=== PATIENT | female | born 1935 | race Caucasian/White ===

== ENCOUNTER 2019-04-16 14:41 | Inpatient (IN) ==
[2019-04-16 18:06] LABS: ALLEN TEST NO; BE 4.7 mmoll (-3.0-3.0); BLOOD TYPE ARTERIAL; HCO3-(ACT) 28.4 mmoll (20.0-26.0); O2(CT) 17.2 mL/dL (15.0-23.0); PCO2(98.6) 42 mmHg (35-45); PO2(98.6) 65 mmHg (60-100); SAMPLE BLOOD; SAO2 97.2 % (95.0-100.0); THB 13.4 g/dL (11.5-17.4); pH(98.6) 7.45 (7.35-7.45)
[2019-04-16 18:08] LABS: MODALITY ROOM AIR
--- NOTE | 2019-04-16 18:13 | EKG Report ---
Test Performed on : 04/16/2019 5:50:03 PM Test Reason : CP Blood Pressure : / mmHG Vent. Rate : 061 BPM Atrial Rate : 061 BPM P-R Int : 174 ms QRS Dur : 086 ms QT Int : 436 ms P-R-T Axes : 075 038 069 degrees QTc Int : 438 ms Normal sinus rhythm. Possible Left atrial enlargement Borderline ECG When compared with ECG of 05-OCT-2011 07:19, No significant change was found Confirmed by Crow Valentine MD ([id number]) on 04/17/2019 12:02:29 PM
[2019-04-16 18:16] LABS: BASO# 0.05 X1000 (0.0-0.2); BASO% 0.7 % (0.0-0.8); EOS# 0.32 X1000 (0.0-0.7); EOS% 4.5 % (0.0-10.0); HEMATOCRIT 41.4 % (37.0-47.0); HEMOGLOBIN 13.8 g/dL (12.0-16.0); LYMPH# 1.98 X1000 (1.2-3.4); LYMPH% 27.5 % (20.5-51.1); MCH 31.2 PG (27-31); MCHC 33.3 g/dL (33-37); MCV 93.5 FL (81-99); MONO# 0.84 X1000 (0.11-0.59); MONO% 11.7 % (1.7-9.3); MPV 10.5 FL (7.4-10.4); NEUT% 55.6 % (42.2-75.2); PLT 198 X1000 (130-400); RBC 4.43 XMIL (4.2-5.4); RDW 13.7 % (11.5-14.5); WBC 7.19 X1000 (4.8-10.8)
--- NOTE | 2019-04-16 18:49 | Diag Imaging Result Doc PS360 ---
EXAM: CHEST-2 VIEWS - 04/16/2019 HISTORY: CP TECHNIQUE: Chest two views COMPARISON: 10/26/2016 FINDINGS: Heart size is normal. There is tortuosity of the thoracic aorta similar to prior. There are stable right basilar calcified granuloma from old granulomatous disease. There are possibly mild COPD changes. The lungs appear clear of acute changes. There is no pleural effusion or pneumothorax identified. There are exaggerated thoracic kyphosis and thoracic spondylosis noted. IMPRESSION: No evidence of acute disease. Electronically signed by Facundo Samano 04/16/2019 6:46 PM
[2019-04-16 18:51] LABS: AGAP 12; ALB/GLOB RATIO 1.6; ALBUMIN 3.8 g/dL (3.5-5.0); ALKALINE PHOSPHATASE 76 U/L (32-104); BUN 12 mg/dL (8-22); CALCIUM 9.5 mg/dL (8.8-10.2); CHLORIDE 106 mmol/L (98-107); CK PROFILE 54 U/L (24-173); COSMO 289; CREATININE 0.6 mg/dL (0.5-0.9); ESTIMATED GFR > 60; GLUCOSE 108 mg/dL (70-104); GOT 15 U/L (10-30); GPT 7 U/L (10-36); MAGNESIUM 2.1 mg/dL (1.5-2.7); POTASSIUM 3.7 mmol/L (3.5-5.1); SODIUM 145 mmol/L (136-145); TCO2 27 mmol/L (25-35); TOTAL BILIRUBIN 0.24 mg/dL (0.20-1.00); TOTAL PROTEIN 6.2 g/dL (6.3-8.3)
[2019-04-16 19:00] LABS: URINE SOURCE CLEAN CATCH
[2019-04-16 19:03] LABS: BILIRUBIN URINE NEGATIVE (NEGATIVE); BLOOD URINE NEGATIVE (NEGATIVE); COLOR YELLOW; GLUCOSE URINE NEGATIVE (NEGATIVE); KETONE URINE NEGATIVE (NEGATIVE); LEUKOCYTES URINE NEGATIVE (NEGATIVE); NITRITE URINE NEGATIVE (NEGATIVE); PH URINE 6.5; PROTEIN URINE NEGATIVE (NEGATIVE); SP GRAVITY URINE 1.012; TURBIDITY URINE CLEAR (CLEAR); UR EPITHELIAL CELLS <10 /HPF (<10); URINE BACTERIA NEGATIVE /HPF; URINE RBC <10 /HPF (<10); URINE WBC <10 /HPF (<10); UROBILINOGEN URINE NORMAL (NORMAL)
[2019-04-16 19:11] LABS: TSH 0.17 uIUmL (0.27-4.20)
--- NOTE | 2019-04-16 19:13 | HISTORY AND PHYSICAL ---
CHIEF COMPLAINT: Shortness of breath, chest pain. HISTORY OF PRESENT ILLNESS: Ms. Haynes is an 84-year-old white female patient, not feeling well last many days. The patient was feeling weak, tired, no energy. Patient had chest pain 3 days ago that lasted for a few minutes associated with shortness of breath and palpitation. Patient stopped doing her work and she felt better. When she started doing her work again she did have problem and family member had to finish. The patient claims she was getting weaker, weight loss. She does have palpitations off and on. Does have cough with scanty sputum production. No nausea or vomiting. Oral intake was poor. Vague abdominal pain. The patient does have diarrhea off and on. No dysuria or hematuria. Does have urinary frequency, urgency. The patient at the time was not feeling well. She was feeling depressed. According to family, the patient lost her about a year ago. No suicidal or homicidal ideation. Unquantified weight loss. Some heat intolerance. At times, arthritic pain in the lower back. ALLERGIES: No known drug allergy. OTHER MEDICATIONS: Includes Plavix, Aricept, hydrochlorothiazide, Cozaar, beta chaitanya, Singulair, potassium, Pravachol. Zantac. PAST MEDICAL HISTORY: Significant for hypertension, hyperlipidemia, rhinitis, gastritis, Alzheimer's type dementia, hypothyroidism, osteoarthritis, COPD, osteoarthritis. PAST SURGICAL HISTORY: The patient had hysterectomy. SOCIAL HISTORY: . Patient does smoke. Denied alcohol or substance abuse. REVIEW OF SYSTEMS: As per HPI. PHYSICAL EXAMINATION: GENERAL: Elderly white female patient in mild distress. VITAL SIGNS: Blood pressure 157/59, pulse 62, respirations 20, temperature 98.4 degrees. SKIN: Senile turgor. HEENT: Head atraumatic, normocephalic. Carnuel conjunctivae. Anicteric sclerae. Extraocular muscle movement normal. Fundus cannot be penetrated. Good oral hygiene. No tonsillopharyngeal congestion or exudate. Ears and nose benign. NECK: Supple. No JVD, thyromegaly or lymphadenopathy. CHEST: Bibasilar crepitation. Bilateral occasional wheezing. No rales. CARDIOVASCULAR: S1 and S2 heard. No gallop or thrill. ABDOMEN: Soft, globular. Bowel sounds present. A 2/6 systolic murmur at the apex. No gallop or thrill. ABDOMEN: Soft, scaphoid. Bowel sounds present. EXTREMITIES: No cyanosis, clubbing. No acute DVT. CENTRAL NERVOUS SYSTEM: Alert, awake, able to move all 4 limbs. MUSCULOSKELETAL: Crepitation in both the knee joints. Vague tenderness lumbosacral spine. LABORATORY DATA: EKG reveals sinus rhythm. No acute ST-T wave changes. Lab data: WBC count 7.19, hemoglobin 13.8, hematocrit 41.4, platelet count 198,000. Blood gas pH 7.45, pCO2 42, PO2 was 65. This was done on room air. Carboxyhemoglobin level was 5.3. chest x- ray result is pending. CONSIDERATION: The patient admitted with chest pain, shortness of breath, palpitation, consideration at paroxysmal atrial fibrillation, heart failure, hyperthyroidism, COPD, gastritis, dementia and depression. PLAN: Overall plan discussed with patient and daughter. I am going to check appropriate labs. Fall precaution. After reviewing labs, we will make necessary recommendations. The patient had a recurrent diarrhea. I am going to do stool workup. cc: Mariusz Gavin MD MTDD
[2019-04-16 19:15] LABS: FREE T4 1.91 ng/dL (0.93-1.70)
[2019-04-16] MEDS: SYMBICORT 80/4.5 MICROGM INHALER INH SCH (19:49)
[2019-04-16] MEDS: LOVENOX SUBQ SCH (20:05)
[2019-04-16] MEDS: POTASSIUM CHLORIDE 10 MEQ in NS 1,000 ML IV SCH (20:05)
[2019-04-16] MEDS: PRAVACHOL PO SCH (20:05)
[2019-04-17 05:21] LABS: BASO# 0.06 X1000 (0.0-0.2); BASO% 0.9 % (0.0-0.8); EOS# 0.35 X1000 (0.0-0.7); EOS% 5.2 % (0.0-10.0); HEMATOCRIT 41.2 % (37.0-47.0); HEMOGLOBIN 13.7 g/dL (12.0-16.0); LYMPH# 1.68 X1000 (1.2-3.4); MCH 30.7 PG (27-31); MCHC 33.3 g/dL (33-37); MCV 92.4 FL (81-99); MONO# 0.72 X1000 (0.11-0.59); MONO% 10.7 % (1.7-9.3); MPV 10.7 FL (7.4-10.4); NEUT# 3.91 X1000 (1.4-6.5); NEUT% 58.2 % (42.2-75.2); PLT 167 X1000 (130-400); RBC 4.46 XMIL (4.2-5.4); RDW 13.5 % (11.5-14.5); WBC 6.72 X1000 (4.8-10.8)
[2019-04-17 05:53] LABS: AGAP 11; ALB/GLOB RATIO 1.2; ALBUMIN 3.4 g/dL (3.5-5.0); ALKALINE PHOSPHATASE 70 U/L (32-104); BUN 11 mg/dL (8-22); CALCIUM 9.2 mg/dL (8.8-10.2); CHLORIDE 107 mmol/L (98-107); COSMO 288; CREATININE 0.6 mg/dL (0.5-0.9); ESTIMATED GFR > 60; GLUCOSE 99 mg/dL (70-104); GOT 13 U/L (10-30); GPT 6 U/L (10-36); POTASSIUM 3.5 mmol/L (3.5-5.1); SODIUM 145 mmol/L (136-145); TCO2 27 mmol/L (25-35); TOTAL BILIRUBIN 0.46 mg/dL (0.20-1.00); TOTAL PROTEIN 6.2 g/dL (6.3-8.3)
[2019-04-17] MEDS ORDERED: POTASSIUM CHLORIDE 20 MEQ/SWI 20 MEQ/100 ML IVPB IV ONE (06:42)
--- NOTE | 2019-04-17 07:16 | PROGRESS NOTE ---
DATE: 04/17/2019 SUBJECTIVE: Ms. Haynes is doing fair. The patient was not able to sleep well last night. No typical chest pain. No nausea, vomiting. The patient does get short of breath with exertion. The patient admitted with history of chest pain, shortness of breath, palpitations, multiple risk factors for coronary artery disease, decreased exercise tolerance. The patient is a vague and poor historian. OBJECTIVE: Her vital signs noted. Neck: Supple. No JVD. Lungs: Bibasilar crepitations. Occasional wheezing. CVS: S1 and S2 heard. Abdomen: Soft, nontender. Bowel sounds present. Extremities: No cyanosis, clubbing. No acute DVT. 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 Able to move all 4 limbs. The patient's chest x-ray revealed changes of COPD. There was no pleural effusion or pneumothorax. Stable calcified granuloma. CONSIDERATIONS: 1. Palpitations. 2. Chest pain. 3. Dyspnea on exertion. 4. Chronic obstructive pulmonary disease. 5. Hypertension. 6. Hypothyroidism. PLAN: Her Synthroid is on hold. I am going to continue current treatment. Get echocardiogram for further evaluation. Get a stress test. After reviewing the results, we will make necessary recommendations. Overall plan discussed with patient and daughter, and they are in agreement. cc: Mariusz Gavin MD
[2019-04-17] MEDS: SYMBICORT 80/4.5 MICROGM INHALER INH SCH ×2 (07:36→19:51)
[2019-04-17] MEDS ORDERED: LOPRESSOR PO SCH (09:00)
[2019-04-17] MEDS: POTASSIUM CHLORIDE 10 MEQ in NS 1,000 ML IV SCH (09:03)
[2019-04-17] MEDS: TOPROL XL PO SCH (13:14)
[2019-04-17] MEDS: HYDROCHLOROTHIAZIDE PO SCH (13:14)
[2019-04-17] MEDS: PLAVIX PO SCH (13:14)
[2019-04-17] MEDS: SINGULAIR PO SCH (13:14)
[2019-04-17] MEDS: KLOR-CON PO SCH (13:14)
[2019-04-17] MEDS: ARICEPT PO SCH (13:15)
[2019-04-17] MEDS: COZAAR PO SCH (13:15)
[2019-04-17] MEDS: ZANTAC PO SCH (13:15)
[2019-04-17] MEDS ORDERED: KLOR-CON PO ONE (17:20)
[2019-04-17] MEDS: LOVENOX SUBQ SCH (20:02)
[2019-04-17] MEDS: PRAVACHOL PO SCH (20:02)
[2019-04-17] MEDS ORDERED: KLONOPIN PO SCH (21:00)
--- NOTE | 2019-04-18 07:08 | PROGRESS NOTE ---
DATE: 04/18/2019 SUBJECTIVE: Ms Haynes is doing better. The patient was able to sleep very well with Klonopin last night. She felt very well rested. No chest pain or palpitations. No high-grade fever or chills. No nausea or vomiting. Mild cough. No expectoration. OBJECTIVE: Vital signs: Noted which are stable. Neck: Supple. No JVD. Lungs: Bibasilar crepitations, occasional wheezing. Cardiovascular: S1 and S2 heard. Abdomen: Soft, scaphoid. Bowel sounds present. Extremities: No cyanosis, clubbing. No acute DVT. Central nervous system: Alert, awake, able to move all 4 limbs. CONSIDERATION: Patient admitted with fatigue. She did have chest pain with multiple risk factors, palpitations, some symptoms suggestive of iatrogenic hyperthyroidism, chronic obstructive pulmonary disease. PLAN: The patient is scheduled to have Lexiscan today. Echocardiogram was not done because of department was very busy yesterday. The patient is going to have those 2 tests done today. If clinical condition permits, I am planning to discharge patient home this evening depending on the results. Plan discussed with patient and daughter. They are in agreement. cc: Mariusz Gavin MD
[2019-04-18] MEDS: SYMBICORT 80/4.5 MICROGM INHALER INH SCH (08:06)
[2019-04-18 09:51] LABS: AGAP 8; ALB/GLOB RATIO 1.3; ALBUMIN 3.6 g/dL (3.5-5.0); ALKALINE PHOSPHATASE 72 U/L (32-104); BUN 11 mg/dL (8-22); CHLORIDE 103 mmol/L (98-107); COSMO 277; CREATININE 0.6 mg/dL (0.5-0.9); ESTIMATED GFR > 60; GLUCOSE 101 mg/dL (70-104); GOT 14 U/L (10-30); GPT 6 U/L (10-36); POTASSIUM 3.9 mmol/L (3.5-5.1); SODIUM 139 mmol/L (136-145); TCO2 28 mmol/L (25-35); TOTAL BILIRUBIN 0.42 mg/dL (0.20-1.00); TOTAL PROTEIN 6.4 g/dL (6.3-8.3)
[2019-04-18] MEDS ORDERED: LEXISCAN ONE (10:31)
[2019-04-18] MEDS: HYDROCHLOROTHIAZIDE PO SCH (12:29)
[2019-04-18] MEDS: SINGULAIR PO SCH (12:30)
[2019-04-18] MEDS: PLAVIX PO SCH (12:30)
[2019-04-18] MEDS: ZANTAC PO SCH (12:30)
[2019-04-18] MEDS: KLOR-CON PO SCH (12:30)
[2019-04-18] MEDS: TOPROL XL PO SCH (12:31)
[2019-04-18] MEDS: COZAAR PO SCH (12:31)
[2019-04-18] MEDS: ARICEPT PO SCH (12:31)
--- NOTE | 2019-04-18 12:57 | ECHO REPORT ---
ORDER DATE: 04/17/2019 INTERPRETING PHYSICIAN: Dr. Myles Henry. ECHOCARDIOGRAPHIC MEASUREMENTS: 1. Interventricular septum 1.2. 2. Left ventricular posterior wall 0.9. 3. Diastolic diameter 4.5. 4. Left atrium 4.6. 5. Aorta 3.2. SUMMARY OF THE 2-DIMENSIONAL IMAGIN. Mitral valve leaflets are mildly thickened. There was opgzzirx-ws-vtwhly mitral annular calcification. 2. Tricuspid valve was normal. 3. Aortic valve leaflets are trileaflet. 4. There is left atrial enlargement. 5. There is moderate tricuspid regurgitation. Peak velocity across the tricuspid valve was 3 m/sec. 6. Pulmonary artery systolic pressure of 50 mmHg. 7. Peak velocity across the aortic valve less than 2 m/sec. There is no aortic stenosis. There is [id number] aortic regurgitation. 8. There is mild mitral regurgitation. 9. Normal left ventricular cavity size. Concentric left ventricular hypertrophy. Estimated ejection fraction of 65%. 10. There is diastolic dysfunction. 11. There is asymmetric septal hypertrophy in the left ventricle as well. 12. There is no pericardial effusion or obvious intracardiac mass or thrombus seen. cc: MD Mariusz Garnica MD
[2019-04-18 15:28] VITALS: BP 102/57
--- NOTE | 2019-04-18 15:48 | Diag Imaging Result Document ---
PROCEDURE NAME: MYOCARDIAL PERF SCAN, STR/REST - 04/17/2019 PROCEDURE: Lexiscan Cardiolite stress test. SUMMARY: 1. Lexiscan was infused per standard protocol. 2. There was no chest pain. 3. Stress electrocardiogram was negative for ischemia. 4. Following Lexiscan infusion, Cardiolite was injected. 5. Gated SPECT images were obtained standard views. 6. 10.8 mCi of Cardiolite was injected for the rest phase. 26.5 mCi of Cardiolite was injected for the stress phase. 7. Images revealed chest wall attenuation. 8. There is normal left ventricular cavity size. 9. Normal myocardial perfusion. 10. Left ventricular ejection fraction 86%. CONCLUSIONS: 1. No chest pain. 2. Negative Lexiscan stress electrocardiogram. 3. Normal myocardial perfusion. 4. Left ventricular ejection fraction 86%. cc: MD Mariusz Garnica MD
--- NOTE | 2019-04-19 09:41 | DISCHARGE SUMMARY ---
ADMISSION DATE: 04/16/2019 DISCHARGE DATE: 04/18/2019 FINAL DISCHARGE DIAGNOSES: 1. Chest pain. 2. Shortness of breath. 3. Congestive heart failure. 4. Chronic obstructive pulmonary disease. 5. Iatrogenic hyperthyroidism. 6. Gastritis. 7. Dementia. HOSPITAL COURSE: Ms. Haynes, an 84-year-old white female patient, not doing well the last many days. The patient was feeling fatigued, tired, no energy, getting short of breath with minimal exertion. She also had she episode of chest pain with exertion, multiple risk factors for coronary artery disease. I evaluated patient in the office. The patient also lost 4 pounds of weight in last few months. The patient was getting weaker. She is known case of hypothyroidism on Synthroid, but her symptoms at times suggestive of iatrogenic hyperthyroidism. At times the patient was not sleeping well. Oral intake was poor. I evaluated the patient and decided to admit her for further care. The patient was admitted to [facility]. The patient was treated with IV. I did appropriate labs, EKG. Her lab data did reveal a low TSH and elevated free T4. Cardiac isoenzymes were negative. I did stress test which was negative for reversible ischemia. Her echocardiogram did reveal elevated pulmonary pressure, normal left ventricular cavity size, concentric left ventricular hypertrophy, estimated ejection fraction was 65%, pulmonary artery systolic pressure was 50, moderate tricuspid regurgitation. There is asymmetric septal hypertrophy in the left ventricle. Chest x-ray did reveal COPD. I held her Synthroid for 2 days. Continued rest of the treatment. Changed metoprolol to Toprol-XL. Started patient on bronchodilator treatment. Her clinical condition stabilized, improved. Discharged patient home on Toprol-XL, Symbicort, ProAir HFA. The patient is already on Plavix and Synthroid 88 mcg daily. Monitor blood pressure and heart rate at home. Follow up with me in 7 to 10 days. Fall precautions. Encouraged smoking cessation. In case of more distress, call us back or go to the emergency room. Overall discharge condition satisfactory. cc: Mariusz Gavin MD
== END 2019-04-18 16:30 | disposition home or self-care (01) | DRG 313 ==
LOC: DIRADM 14:41 → 2N 16:35
PROVIDERS: ADMIT Internal Medicine; ATTEND Internal Medicine

== ENCOUNTER 2019-10-28 09:31 | Inpatient (IN) ==
--- NOTE | 2019-10-28 12:26 | Diag Imaging Result Doc PS360 ---
EXAM: CHEST-PORTABLE INDICATION: chest pain TECHNIQUE: One view COMPARISON: 04/16/2019 FINDINGS: There is evidence of prior granulomatous disease, stable. The lungs are grossly clear. There is no discrete pleural fluid collection or pneumothorax. The cardiac silhouette is borderline to mildly prominent prominent. IMPRESSION: Borderline to mildly prominent cardiac silhouette. No definite acute pathology by plain radiograph, otherwise. Electronically signed by Regis Boucher 10/28/2019 12:23 PM
[2019-10-28 12:41] LABS: BASO# 0.06 X1000 (0.0-0.2); EOS# 0.16 X1000 (0.0-0.7); EOS% 2.5 % (0.0-10.0); HEMATOCRIT 37.9 % (37.0-47.0); HEMOGLOBIN 11.4 g/dL (12.0-16.0); LYMPH# 1.33 X1000 (1.2-3.4); LYMPH% 21.1 % (20.5-51.1); MCHC 30.1 g/dL (33-37); MCV 93.1 FL (81-99); MONO# 0.69 X1000 (0.11-0.59); MPV 10.1 FL (7.4-10.4); NEUT# 4.05 X1000 (1.4-6.5); NEUT% 64.4 % (42.2-75.2); PLT 209 X1000 (130-400); RBC 4.07 XMIL (4.2-5.4); RDW 14.5 % (11.5-14.5); WBC 6.29 X1000 (4.8-10.8)
[2019-10-28 12:46] LABS: INR 0.98; PROTIME 13.1 Seconds (11.0-16.0); PTT 31.6 Seconds (22.3-41.8)
--- NOTE | 2019-10-28 12:57 | EKG Report ---
Test Performed on : 10/28/2019 12:53:47 PM Test Reason : chest pain Blood Pressure : / mmHG Vent. Rate : 065 BPM Atrial Rate : 065 BPM P-R Int : 156 ms QRS Dur : 082 ms QT Int : 424 ms P-R-T Axes : 073 052 071 degrees QTc Int : 440 ms Normal sinus rhythm. Normal ECG When compared with ECG of 16-APR-2019 17:50, No significant change was found Confirmed by Everton Alamo MD ([id number]) on 10/29/2019 9:00:56 PM
[2019-10-28 13:00] LABS: AGAP 10; ALB/GLOB RATIO 1.6; ALBUMIN 3.8 g/dL (3.5-5.0); ALKALINE PHOSPHATASE 73 U/L (32-104); BUN 14 mg/dL (8-22); CHLORIDE 106 mmol/L (98-107); COSMO 287; CREATININE 0.7 mg/dL (0.5-0.9); ESTIMATED GFR > 60; GLUCOSE 86 mg/dL (70-104); GOT 17 U/L (10-30); GPT 8 U/L (10-36); POTASSIUM 4.1 mmol/L (3.5-5.1); SODIUM 144 mmol/L (136-145); TCO2 28 mmol/L (25-35); TOTAL BILIRUBIN 0.35 mg/dL (0.20-1.00); TOTAL PROTEIN 6.2 g/dL (6.3-8.3)
[2019-10-28] MEDS: ROCEPHIN 1 GM in NS 50 ML IV SCH (14:34)
[2019-10-28] MEDS: ZITHROMAX PO SCH (14:35)
[2019-10-28] MEDS: PLAVIX PO SCH (14:36)
[2019-10-28] MEDS: LEXAPRO PO SCH (14:36)
[2019-10-28] MEDS: SYNTHROID PO SCH (14:36)
[2019-10-28] MEDS: PROTONIX PO SCH (14:36)
[2019-10-28] MEDS: KLOR-CON PO SCH (14:36)
[2019-10-28] MEDS: ARICEPT PO SCH (14:37)
[2019-10-28] MEDS: SINGULAIR PO SCH (14:37)
[2019-10-28] MEDS ORDERED: XANAX PO PRN (17:15)
[2019-10-28] MEDS ORDERED: CATAPRES PO PRN (17:16)
--- NOTE | 2019-10-28 17:37 | HISTORY AND PHYSICAL ---
CHIEF COMPLAINT: Chest congestion, chest pain, shortness of breath. HISTORY OF PRESENT ILLNESS: Ms Haynes, an 84-year-old white female patient, not doing well since last . The patient was complaining of chest congestion, cough with scanty sputum production, and low-grade fever. Her symptoms started with runny nose, stuffy nose, scratchy throat, and malaise. Patient tried iabh-nem-ibjxdjc medication without significant relief. The patient had some nosebleed, cough productive of whitish-green sputum. No nausea or vomiting. Oral intake was poor the last 2 days. The patient had chest pain which she described as left precordial going to the left arm associated with shortness of breath and some palpitations. The patient did not tell anybody about her chest pain. She tried to take rest and her pain went away. The patient does have multiple risk factors for coronary artery disease. I evaluated patient in the office and decided to admit her for further care. The patient denied any nausea or vomiting. No diarrhea, blood or mucus in the stool. Oral intake was fair. No dysphagia or odynophagia. Denied any dysuria or hematuria. Occasional headache. No focal numbness, tingling, or weakness. Unquantified weight loss. No heat or cold intolerance. At times, polyuria, polydipsia. Denied any hemoptysis. No hematuria. I evaluated patient in the office and decided to admit her for further care. ALLERGIES: Patient is allergic to Zocor. MEDICATION: ProAir HFA, Symbicort, Plavix, Aricept, Lexapro, Synthroid, Singulair, Protonix, potassium and Pravachol. PAST MEDICAL HISTORY: Hyperlipidemia, gastritis and reflux disease. Allergic rhinitis. Hypothyroidism. Situational depression. Dementia. History of TIA. COPD. PERSONAL HISTORY: . The patient does smoke. Denied alcohol or substance abuse. FAMILY HISTORY: Noncontributory. PAST SURGICAL HISTORY: Significant for hysterectomy. REVIEW OF SYSTEMS: As per HPI. PHYSICAL EXAMINATION: GENERAL: An elderly white female patient in mild distress. VITAL SIGNS: Blood pressure 162/68, pulse 68, respirations 18, temperature 98.4 degrees. SKIN: Denied turgor. HEENT: Head atraumatic, normocephalic. Carrington conjunctivae. Anicteric sclerae. Extraocular muscle movements normal. Fundus cannot be penetrated. Good oral hygiene. No tonsillopharyngeal congestion or exudate. Ears and nose benign. NECK: Supple. No JVD, thyromegaly or lymphadenopathy. CHEST: Bilateral good air entry present. Bibasilar crepitations. Occasional wheezing. CARDIOVASCULAR: S1 and S2 heard. No gallop or thrill. ABDOMEN: Soft, globular. Bowel sounds present. Mild epigastric tenderness. No guarding or rigidity. EXTREMITIES: No cyanosis, clubbing. No acute DVT. Peripheral pulsations intact. 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 Able to move all 4 limbs. Crepitation both the knee joints. LABORATORY DATA: Hemoglobin 11.4, hematocrit 37.9. WBC count 6.29, platelet count 209,000. PT/INR 0.9. PTT 31.6. D-dimer 0.52. Electrolytes were fairly benign. Total protein 6.2, C- reactive protein was normal. CEA level was 14.5. CONSIDERATIONS: 1. Patient admitted with chest congestion, cough, shortness of breath and wheezing. The patient does have underlying chronic obstructive pulmonary disease. Consideration for acute asthmatic bronchitis. Mild COPD exacerbation. 2. Her other problem includes chest pain with multiple risk factors. 3. History suggestive of transient ischemic attack. 4. Hypothyroidism. 5. Gastritis and reflux disease. 6. Hypokalemia. 7. Alzheimer's type dementia. 8. Situational depression. 9. Rhinitis. PLAN: Admit the patient. IV antibiotics. Bronchodilator treatment. Cardiology consult. Overall plan discussed at length with the patient and daughter. They are in agreement. Discussed about smoking cessation. cc: Mariusz Gavin MD
[2019-10-28] MEDS: PRAVACHOL PO SCH (20:29)
[2019-10-28] MEDS: LOVENOX SUBQ SCH (20:29)
[2019-10-28] MEDS: SYMBICORT 80/4.5 MICROGM INHALER INH SCH (22:39)
--- NOTE | 2019-10-28 22:47 | ECHO REPORT ---
ORDER DATE: 10/28/2019 MEASUREMENTS: Septal thickness 1.0, left ventricular internal diameter in diastole 4.7, posterior wall thickness 1.0, left ventricular internal diameter in systole 2.6, aortic root 2.8, left atrium 5.1. SUMMARY: 1. Fair quality study. 2. Aortic valve demonstrates mild sclerotic change, but opens adequately on 2-dimensional images. 3. Aortic valve demonstrates mild to moderate sclerotic change, but opens adequately on 2- dimensional images. Peak gradient across aortic valve is 11 mmHg with a mean gradient of 6 mmHg. There is mild aortic regurgitation. Moderate mitral annular calcification is demonstrated with mild mitral regurgitation. Tricuspid and pulmonic valves are without evidence of structural abnormality with mild tricuspid regurgitation. Estimated systolic PA pressure by Doppler is 65 to 70 mmHg suggesting moderate to severe pulmonary hypertension. The aortic root is normal size. 4. Normal left ventricular dimensions demonstrated. The estimated left ejection fraction approximately 70%. No regional wall motion abnormality can be appreciated. Left atrium is moderate to severely enlarged. The right atrium and right ventricle are normal in size with grossly preserved right ventricular systolic function. 5. No pericardial effusion. 6. Appearance of inferior vena cava suggests normal central venous pressure. CONCLUSIONS: 1. Aortic valve sclerosis without stenosis with mild aortic regurgitation. 2. Moderate mitral annular calcification with mild mitral regurgitation. 3. Mild tricuspid regurgitation with moderate to severe pulmonary hypertension by Doppler. 4. Estimated ejection fraction approximately 70%. 5. Moderate to severe left atrial enlargement. cc: MD Mariusz Sky MD
[2019-10-29 00:19] LABS: URINE SOURCE CLEAN CATCH
[2019-10-29 00:43] LABS: BILIRUBIN URINE NEGATIVE (NEGATIVE); BLOOD URINE NEGATIVE (NEGATIVE); COLOR YELLOW; GLUCOSE URINE NEGATIVE (NEGATIVE); KETONE URINE NEGATIVE (NEGATIVE); LEUKOCYTES URINE NEGATIVE (NEGATIVE); NITRITE URINE NEGATIVE (NEGATIVE); PH URINE 6.5; PROTEIN URINE TRACE mg/dL (NEGATIVE); TURBIDITY URINE CLEAR (CLEAR); UROBILINOGEN URINE NORMAL (NORMAL)
[2019-10-29 00:48] LABS: UR EPITHELIAL CELLS <10 /HPF (<10); URINE BACTERIA NEGATIVE /HPF; URINE CASTS NONE SEEN; URINE CRYSTALS NONE SEEN; URINE RBC <10 /HPF (<10); URINE SMALL ROUND CELLS NONE SEEN; URINE WBC <10 /HPF (<10); URINE YEAST NONE SEEN
[2019-10-29] MEDS: VENTOLIN HFA INH SCH ×3 (05:09→22:58)
--- NOTE | 2019-10-29 07:25 | PROGRESS NOTE ---
DATE: 10/29/2019 SUBJECTIVE: Ms. Haynes is doing better. She does have occasional cough and chest congestion. No high-grade fever or chills. The patient was able to rest well last night. She is scheduled to have a stress test today. No dysuria or hematuria. No major weight loss. Patient had upper and lower GI endoscopy done about year ago. It was benign. The patient gained 2 pounds of weight. No gross hematuria. PAST MEDICAL HISTORY: Noted. MEDICATIONS: Noted. OBJECTIVE: Vital Signs: Reviewed. Neck: Supple. No JVD. Lungs: Bilateral good air entry present. Few basal crepitations. Cardiovascular System: S1 and S2 heard. Abdomen: Soft, globular. Bowel sounds present. Extremities: No cyanosis, clubbing. No acute DVT. Central Nervous System: Alert, awake, able to move all 4 limbs. No acute DVT. CONSIDERATIONS: The patient's CEA level was elevated. Sedimentation rate normal. The patient had upper and lower GI endoscopy done about 1 year ago, and it was benign. The patient does check her breasts regularly and denied any lump. Her chest x-ray was benign. The patient does smoke. Lab data reviewed. Urine did not reveal any hematuria. The patient is scheduled to have a stress test today. Blood work ordered for this morning is pending. ASSESSMENT: The patient admitted with: 1. Acute asthmatic bronchitis. 2. Chest pain. 3. She does have hypothyroidism. 4. Situational depression. 5. History suggestive of transient ischemic attack. 6. Echocardiogram results reviewed. PLAN: Overall plan discussed with patient and daughter. They are in agreement. I appreciate Cardiology's help managing this patient. cc: Mariusz Gavin MD
[2019-10-29 08:05] LABS: HEMOGLOBIN A1C 5.2 % (4.8-6.0)
[2019-10-29 08:06] LABS: AGAP 11; ALB/GLOB RATIO 1.2; ALBUMIN 3.4 g/dL (3.5-5.0); ALKALINE PHOSPHATASE 70 U/L (32-104); BUN 12 mg/dL (8-22); CALCIUM 8.8 mg/dL (8.8-10.2); CHLORIDE 109 mmol/L (98-107); COSMO 290; CREATININE 0.7 mg/dL (0.5-0.9); ESTIMATED GFR > 60; GLUCOSE 100 mg/dL (70-104); GOT 16 U/L (10-30); GPT 8 U/L (10-36); POTASSIUM 4.1 mmol/L (3.5-5.1); SODIUM 146 mmol/L (136-145); TCO2 26 mmol/L (25-35); TOTAL BILIRUBIN 0.42 mg/dL (0.20-1.00); TOTAL PROTEIN 6.3 g/dL (6.3-8.3)
[2019-10-29 08:17] LABS: FREE T4 1.35 ng/dL (0.93-1.70)
[2019-10-29 08:21] LABS: TSH 6.46 uIUmL (0.27-4.20)
--- NOTE | 2019-10-29 08:40 | CARDIOLOGY CONSULTATION ---
DATE: 10/28/2019 REASON FOR CONSULTATION: Chest pain. HISTORY: Mrs. Haynes presents to the emergency room per Dr. Gavin's instructions because she developed recurrent significant chest pain. Yesterday, she was cooking at home and developed a bad left-sided and anterior chest pain, radiated to the arm and left side of the neck. That lasted for about 10 minutes. Because the pain had been creeping up on her she was advised to come to the ER. At the time of this consultation they have already checked the troponin levels, which is negative. Her BUN, creatinine, and electrolytes are normal. Her hemoglobin is 11.4. The chest x-ray shows no acute abnormality. A 12 lead EKG is normal. PAST HISTORY: Positive for an episode of angina pectoris many years ago. She was treated by Dr. Gillette at the [facility] in [place] with angioplasty. Since then, she did not experience any further chest pains until recently when the pains started to happen intermittently for the past 2 years. The patient has a history of neck and back pain. She has a history of COPD. History of acid reflux. History of hothyroidism. She is suspected to have had mini strokes in the past. She was admitted to this hospital back in March 2019 and at that time the chief complaint was shortness of breath and chest pain. They did a Lexiscan stress test and a 2D echocardiogram on April 17 that showed no obvious abnormalities. The pulmonary pressure was 50 mmHg. The nuclear stress test using the Lexiscan protocol showed no deficits although chest attenuation was reported as present. The patient has not had any CT scan of the chest recently. A prior vascular study of the lower extremities done in November 2018 showed no evidence of lower extremity arterial stenosis. Patient was complaining of feeling cold all the time. SURGICAL HISTORY: Positive for hysterectomy. She has had also thyroidectomy. She has had 2 neck surgeries and 3 lower back surgeries in the past. SOCIAL HISTORY: She is a for the past 2 years. She has 1 daughter. She retired from [employer]). She has been a smoker for many years and currently she is smoking about 4 packs a week. HOME MEDICATIONS: Include albuterol inhaler, budesonide, Symbicort 2 puffs twice a day, clopidogrel 75 mg daily. donepezil 10 mg daily. Lexapro 10 mg daily, Synthroid 88 mcg daily, montelukast 10 mg daily, Protonix 40 mg daily, potassium chloride 20 mEq daily, pravastatin 80 mg at bedtime. ALLERGIES: She is intolerant to Zocor. FAMILY HISTORY: Really noncontributory. REVIEW OF SYSTEMS: Her chest pain seems to be exertional times. It is short lasting for most part. Later on, it has increased in frequency. There has been some episodes of lower extremity edema. No true claudication. She complains of feeling cold all the time. There has been no syncope or dizziness. Her balance is poor in general she is walking with a quad cane. The patient has no weight loss or poor appetite. She is able to care for self at home. The daughter is very attentive. Daughter's name is Renae Ravi, phone #[phone] and she was present in the ER at the time of my evaluation. PHYSICAL EXAMINATION: Vital signs: Blood pressure is 182/65, temperature 97.8 degrees, pulse 65, respirations 20. Patient is awake, alert, oriented, in no distress. HEENT: Unremarkable. Chest: Sounds clear to auscultation and percussion. Heart: Sounds are regular rhythmic. No gallop or murmur. Abdomen: Nontender. Extremities: Showed no edema. Neuro: Nonfocal moves 4 extremities. IMPRESSION: 1. Patient who presents with chest pain that sounds atypical. 2. History of coronary heart disease in the past with a previous balloon angioplasty done 20 years ago in [place]. 3. Likely chronic obstructive pulmonary disease. Patient has been a smoker for more than 50 years. 4. Hypothyroidism status post thyroidectomy. 5. History of back pain and cervical spine arthritis. Previous cervical and lumbar spine surgery. 6. Question of vascular dementia. 7. Hyperlipidemia. 8. Question of hypertension. RECOMMENDATION: At this time, we will do basic blood work including inflammatory markers. We will do echocardiogram and stress test to follow up on her cardiac disease. I will get a CT of the thorax to make sure that we do not have any missing lesion in the chest. I will check a D-dimer first to make sure that the patient does not require a CT angiogram of the pulmonary artery. Further advice will be forthcoming. cc: MD Mariusz Roper MD MTDD
--- NOTE | 2019-10-29 08:48 | Diag Imaging Result Doc PS360 ---
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 COMPARISON: 10/05/2011 FINDINGS: There is moderate to advanced pulmonary emphysema with an apical predominance. There is a bulky calcified granuloma involving the right lower lobe and a punctate left upper lobe calcified granuloma near the apex. There is a miniscule 3.9 mm slightly nodular pleural-based density abutting the minor fissure on image 54 series 3. Statistically, this likely represents a noncalcified granuloma. Based on Fleischner Society criteria, an optional follow-up CT in 12 months could be considered. There is trace layering pleural fluid on the left. There is minimal dependent atelectasis at both lung bases. There is no evidence of pneumothorax. There are bulky calcified mediastinal and right hilar lymph nodes indicating prior granulomatous disease. There is no cardiomegaly. There are coronary artery calcifications. There is at least moderate aortic atherosclerotic calcification. There is a small endobronchial nodular focus in the right mainstem bronchus just distal to the tg that has a frothy internal appearance. This probably represents mucoid debris. Further evaluation is limited with no IV contrast, however. There are thoracic spine degenerative changes. There is no evidence of acute osseous abnormality. Limited views of the upper abdomen reveal stable left hepatic lobe cysts. IMPRESSION: 1.Moderate to advanced pulmonary emphysema. 2.Trace pleural fluid on the left and minimal bibasilar subsegmental atelectasis. 3.Slightly nodular frothy appearing focus in the right mainstem bronchus that probably represents mucoid debris. However, further evaluation is limited with no IV contrast. 4.3.9 mm nodular focus abutting the minor fissure in the right middle lobe. Please see above discussion. Electronically signed by Regis Boucher 10/29/2019 8:45 AM
[2019-10-29] MEDS ORDERED: LEXISCAN ONE (10:45)
[2019-10-29] MEDS: KLOR-CON PO SCH (12:22)
[2019-10-29] MEDS: ZITHROMAX PO SCH (12:22)
[2019-10-29] MEDS: PLAVIX PO SCH (12:23)
[2019-10-29] MEDS: SINGULAIR PO SCH (12:23)
[2019-10-29] MEDS: LEXAPRO PO SCH (12:23)
[2019-10-29] MEDS: PROTONIX PO SCH (12:23)
[2019-10-29] MEDS: ARICEPT PO SCH (12:23)
[2019-10-29] MEDS: SYNTHROID PO SCH (12:23)
--- NOTE | 2019-10-29 13:32 | Diag Imaging Result Document ---
PROCEDURE NAME: MYOCARDIAL PERF SCAN, STR/REST - 10/29/2019 INDICATIONS: Chest pain. PROCEDURES PERFORMED: 1. Lexiscan stress. 2. One-day stress rest myocardial perfusion imaging (rest dose 11 millicuries, stress dose 29.2 mCi). LEXISCAN STRESS RESULTS: 1. Baseline EKG shows sinus rhythm number. 2. Lexiscan stress does not demonstrate any clear evidence of ischemic related EKG changes or significant arrhythmias during the course of study. PERFUSION IMAGING RESULTS: 1. No evidence of abnormal extracardiac uptake. 2. TID ratio is 1.13. 3. On review of splash images, there does not appear to be any clear evidence of transient ischemic dilatation. 4. Perfusion imaging demonstrates what appears to be normal homogeneous uptake of radiotracer throughout the myocardial segments. There is no evidence of stress-related defects. 5. Normal ejection fraction at stress of 75% with an end-diastolic volume of 99 and systolic volume 25. Normal wall motion. cc: MD Rigo Gonzalez MD
[2019-10-29] MEDS: ROCEPHIN 1 GM in NS 50 ML IV SCH (14:56)
[2019-10-29] MEDS: SYMBICORT 80/4.5 MICROGM INHALER INH SCH ×2 (16:12→20:46)
[2019-10-29] MEDS: PRAVACHOL PO SCH (20:52)
[2019-10-29] MEDS: LOVENOX SUBQ SCH (20:52)
[2019-10-30] MEDS: VENTOLIN HFA INH SCH ×3 (05:49→15:50)
--- NOTE | 2019-10-30 07:28 | PROGRESS NOTE ---
DATE: 10/30/2019 SUBJECTIVE: Ms Haynes is doing better. The patient does have chest congestion, and cough with expectoration. No hemoptysis. No high-grade fever or chills. No typical chest pain. She denied any nausea or vomiting. The patient had stress test done yesterday, and results reviewed. Discussed with the patient and family. The patient is still complaining of some diarrhea which could be due to Zithromax which I am going to discontinue. I did check her TSH and free T4 which was satisfactory. OBJECTIVE: Vital signs noted.Neck: Supple. No JVD. Lungs: Bilateral good air entry present. Occasional wheezing. CVS: S1 and S2 heard. Abdomen: Soft. Nontender. Bowel sounds present. BLOWER INSULATOR: Alert and awake. Able to move all 4 limbs. LABORATORY DATA: Reviewed. Electrolytes done yesterday noted. Her TSH was 6.46. Free T4 1.35. CEA level was elevated. CT scan of the chest results reviewed. CONSIDERATION: 1. Acute bronchitis. The patient does have advanced COPD. Encouraged patient to quit smoking. 2. Chest pain. Her cardiac isoenzymes were negative. 3. Hypothyroidism. 4. Diarrhea. I am going to check stool workup. 5. We will ambulate the patient today. If clinical condition permits, we will plan discharging patient home tomorrow. cc: Mariusz Gavin MD
--- NOTE | 2019-10-30 08:28 | Carotid Study ---
DATE: 10/28/2019 The carotid arteries performed using the [employer] Vivid E9 ultrasound system with a 9 L-D transducer REFERRING PHYSICIAN: DR. Mariusz Gavin MD. An 84-year-old female. VETERINARY PHARMACOLOGIST: Janelle Ladd RVT. INDICATIONS: Carotid stenosis. FINDINGS: The velocities in cm/sec throughout both carotid systems were reviewed. There is forward flow in the right vertebral artery and the right ICA/CCA ratio is 1.61 corresponding 2% stenosis of 0 to 39%. The left vertebral artery has forward flow and the left ICA/CCA ratio is 1.24 corresponding 2% stenosis of 0 to 39 percent. INTERPRETATION: Mild atherosclerotic disease of the distal common and internal carotid arteries bilaterally without evidence of a hemodynamically significant lesion in either carotid system. cc: MD Mariusz Salas MD
[2019-10-30] MEDS: SYMBICORT 80/4.5 MICROGM INHALER INH SCH ×2 (08:37→19:31)
[2019-10-30] MEDS: PLAVIX PO SCH (09:51)
[2019-10-30] MEDS: SINGULAIR PO SCH (09:51)
[2019-10-30] MEDS: SYNTHROID PO SCH (09:51)
[2019-10-30] MEDS: CARDIZEM CD PO SCH (09:51)
[2019-10-30] MEDS: LEXAPRO PO SCH (09:51)
[2019-10-30] MEDS: ALTACE PO SCH (09:51)
[2019-10-30] MEDS: KLOR-CON PO SCH (09:52)
[2019-10-30] MEDS: PROTONIX PO SCH (09:52)
[2019-10-30] MEDS: ARICEPT PO SCH (09:52)
--- NOTE | 2019-10-30 11:53 | CARDIOLOGY PROGRESS NOTE ---
DATE: 10/30/2019 CHIEF COMPLAINT: Chest pain. SUBJECTIVE: Mrs. Haynes is feeling better today. She is not having any chest pain. Her daughter is at the bedside. OBJECTIVE: Vital signs: Blood pressure 161/78, temperature 97.8 degrees, pulse 67, respirations 16. General: She is awake, alert, oriented, no distress. HEENT: Unremarkable. Chest: Sounds fairly clear to auscultation and percussion. Heart: Sounds are regular and rhythmic. I do not hear any gallop or murmur. Abdomen: Soft, nontender. No masses. No hepatomegaly. Extremities: Showed decreased pulses. No peripheral edema. Neurologic exam: Follows commands, moves all 4 extremities. BLOOD WORK: From yesterday shows sodium 146, potassium 4.1, BUN 12, creatinine 0.7. TSH was 6.46. CEA was 14.5, which is about 3 times baseline, significance of that is unclear. C-reactive protein was normal. Sedimentation rate was normal. Her echocardiogram from 10/27 showed ejection fraction of 70% with moderate MAC and mild mitral valve regurgitation. There is bazumfev-cm-wogghy pulmonary hypertension 65 to 70 mmHg. Her myocardial perfusion stress test done yesterday using a Lexiscan protocol is negative for ischemia. Ejection fraction is 75%. IMPRESSION: 1. Patient presented with chest pain that is certainly noncardiac based on the negative results of troponins, stress test, and echocardiogram. 2. Chronic obstructive pulmonary disease. A CT of the chest was done yesterday that shows moderate to advanced pulmonary emphysema. There is trace pleural fluid on the left and minimal bibasilar subsegmental atelectasis. There is a slightly nodular frothy-appearing focus in the right mainstem bronchus probably representing mucoid debris. There is also a 3.9 mm nodular focus abutting the minor fissure in the right middle lobe. 3. Patient with a history of hyperlipidemia. 4. Patient with evident hypertension. Multiple blood pressure determinations are elevated. 5. Prior coronary heart disease. Balloon angioplasty a long time ago. 6. Back pain and cervical spine arthritis. 7. Question of vascular dementia. RECOMMENDATIONS: At this time from the cardiac viewpoint, I would suggest to add a low dose of diltiazem and also lisinopril to optimize her systemic blood pressure. We will discuss with Dr. Gavin. The patient may require a Pulmonary consultation because of the abnormal CT of the chest, elevation of the CEA. Cardiac-mathews, there is no need for invasive evaluation. cc: MD Mariusz Roper MD
[2019-10-30] MEDS: ROCEPHIN 1 GM in NS 50 ML IV SCH (16:40)
[2019-10-30] MEDS: PRAVACHOL PO SCH (21:06)
[2019-10-30] MEDS: LOVENOX SUBQ SCH (21:07)
[2019-10-31] MEDS: VENTOLIN HFA INH SCH (05:19)
[2019-10-31 07:47] VITALS: BP 139/61
[2019-10-31] MEDS: SYMBICORT 80/4.5 MICROGM INHALER INH SCH (08:08)
[2019-10-31] MEDS: CARDIZEM CD PO SCH (09:07)
[2019-10-31] MEDS: ALTACE PO SCH (09:07)
[2019-10-31] MEDS: PLAVIX PO SCH (09:07)
[2019-10-31] MEDS: LEXAPRO PO SCH (09:07)
[2019-10-31] MEDS: KLOR-CON PO SCH (09:08)
[2019-10-31] MEDS: PROTONIX PO SCH (09:08)
[2019-10-31] MEDS: SINGULAIR PO SCH (09:08)
[2019-10-31] MEDS: ARICEPT PO SCH (09:08)
[2019-10-31] MEDS: SYNTHROID PO SCH (09:08)
--- NOTE | 2019-10-31 19:32 | DISCHARGE SUMMARY ---
ADMISSION DATE: 10/28/2019 DISCHARGE DATE: 10/31/2019 FINAL DISCHARGE DIAGNOSES: 1. Exacerbation of chronic obstructive pulmonary disease. 2. Acute ashtamatic bronchitis. 3. Chest pain. 4. Hypertension. 1. History suggestive of transient ischemic attack. 2. Hypothyroidism. 3. Gastritis and reflux disease. 4. Hypokalemia. 5. Alzheimer type dementia. 6. Situational depression. 7. Rhinitis . 8. Osteoarthritis. 9. Mild hearing impairment. 10. Elevated CEA level. Ms Haynes 84-year-old white female patient admitted with chest congestion, cough, shortness of breath, wheezing, low grade fever, runny nose, stuffy nose. Patient was taking [id number] medication without significant relief. Patient also have some nose bleed. Cough productive of whitish green sputum production. The patient was getting short of breath easily. I evaluated patient in the office decided to admit patient for further care. HOSPITAL COURSE: The patient admitted to telemetry bed. She was started on IV antibiotics, pulmonary toilet, bronchodilator treatment, symptomatic care. Her clinical condition stabilized and improved. Cardiology consult obtained because of her chest pain. Dr. Hoffman saw the patient. The patient had echocardiogram, stress test done and carotid Doppler done. Her stress test was negative. Her clinical condition gradually improved. Patient started ambulating well. Cough and chest congestion improved. Patient was eager to go home and I discharged patient home today. Advised to follow up with me in a week time. Her CT scan results reviewed, discussed with patient. The patient was discharged home on oral antibiotics, bronchodilator treatment. In case of more distress, call us back or go to emergency room. Her vital signs noted. Neck: Supple. No JVD. Lungs: Bibasilar crepitation. Heart: S1 and S2 heard. Abdomen: Soft, nontender. Bowel sounds present. Extremities: No cyanosis, clubbing. No acute DVT. RESOURCES REPRESENTATIVE: Alert, awake, able to move all 4 limbs. LAB DATA: Revealed hemoglobin 11.4, hematocrit 37.9, WBC count 6.29, platelet count 209,000. PT/INR 0.98, PTT 31.6. D-dimer 0.52. Electrolytes were fairly benign. Her troponin was normal. C. reactive protein 1.45. Vitamin B12 394, TSH 6.46, free T4 of 1.35. Urinalysis was benign. Patient had CT scan of the chest done which revealed moderately advanced pulmonary emphysema with an apical predominance, bulky calcified granuloma involving the right lower lobe and punctate left lobe calcified granuloma, nodular pleural based density bulky, moderately advanced COPD, trace pleural fluid on the left and minimal bibasilar subsegmental atelectasis, slightly nodular frothy appearing focus in the right mainstem bronchus that probably represent mucoidy base, 3.9 mm nodular focus abutting the minor fissure. Patient's carotid Doppler and echocardiogram results reviewed. Overall discharge condition satisfactory. Patient was started on Altace 5 mg daily, Cardizem CD, continue rest of the treatment. cc: Mariusz Gavin MD MTDD
== END 2019-10-31 09:55 | disposition home or self-care (01) | DRG 202 ==
LOC: DIRADM 09:31 → EDIPHOLD 10:50 → 3N 15:18
PROVIDERS: ADMIT Internal Medicine; ATTEND Internal Medicine

== ENCOUNTER 2019-12-10 11:22 | Inpatient (IN) ==
[2019-12-10] MEDS ORDERED: CARDIZEM IV ONE (12:14)
--- NOTE | 2019-12-10 12:18 | PROVIDER DOCUMENTATION ---
HPI-Respiratory General - General Chief Complaint: Cough Stated Complaint: FEVER,COUGH,VOMITING Time Seen by Provider: 12/10/19 11:44 Source: patient Allergies/Adverse Reactions: Patient Allergies Allergy/AdvReac Type Severity Reaction Status Date / Time simvastatin [From Zocor] Allergy Verified 10/28/19 12:11 Home Medications: Home Medication List Medication Instructions Recorded Confirmed Last Taken Type Clopidogrel [Plavix] 75 mg PO DAILY 04/16/19 10/28/19 10/27/19 07:00 History Donepezil HCl 10 mg PO DAILY 04/16/19 10/28/19 10/27/19 07:00 History Montelukast Sodium 10 mg PO DAILY 04/16/19 10/28/19 10/27/19 07:00 History Potassium Chloride E.r. [Klor-Con] 20 meq PO DAILY 04/16/19 10/28/19 10/27/19 07:00 History Pravastatin Sodium 80 mg PO HS 04/16/19 10/28/19 10/27/19 20:00 History Albuterol Sulfate [Proair Hfa] 8.5 gm INHALATION 4XDAY #1 04/18/19 10/28/19 10/27/19 07:00 Rx [email or web address] Budesonide/Formoterol Inhaler 2 puff INH RTBID inhaler 04/18/19 10/28/19 10/27/19 07:00 Rx [Symbicort 80/4.5 Microgm Inhaler] Levothyroxine [Synthroid] 88 microgm PO DAILY #30 tab 04/18/19 10/28/19 10/27/19 07:00 Rx Escitalopram [Lexapro] 10 mg PO DAILY 10/28/19 10/28/19 10/27/19 07:00 History Pantoprazole [Protonix 40 mg PO DAILY 10/28/19 10/28/19 10/27/19 07:00 History [Nonformulary]] CefUROXIME [Ceftin] 500 mg PO Q12HR #10 tab 10/30/19 Unknown Rx Clonidine [Catapres] 0.1 mg PO TID PRN PRN tab 10/30/19 Unknown Rx Diltiazem C.d. [Cardizem Cd] 120 mg PO DAILY cap 10/30/19 Unknown Rx RAMIpril [Altace] 5 mg PO DAILY cap 10/30/19 Unknown Rx - History of Present Illness-Resp Nature of Presenting Problem: patient is a 84 year old white female with history of COPD, atrial fibrillation (followed by Dr. Gonzalez), and tobacco abuse who presents with low grade fever, cough, sob,and irregular rapid pulse for past [address] Gavin. Review of Systems - Adult - REVIEW OF SYSTEMS - ADULT Constitutional: reports: chills, fever Eyes: reports: no symptoms reported Ears, Nose, Mouth & Throat: reports: no symptoms reported Cardiovascular: reports: see HPI. denies: chest pain Respiratory: reports: cough, shortness of breath Gastrointestinal: reports: diarrhea, nausea, vomiting. denies: abdominal pain Genitourinary: denies: dysuria Musculoskeletal: reports: no symptoms reported Integumentary: denies: rash Neurological: reports: no symptoms reported Psychiatric: reports: anxiety Endocrine: reports: no symptoms reported Hematologic/Lymphatic: reports: no symptoms reported Allergic/Immunologic: reports: no symptoms reported All Other Systems: Reviewed and Negative Past History - Adult - PAST MEDICAL HISTORY-ADULT Review of Records: reports: Old Records Reviewed, Nursing Assessment Review, Medications Reviewed, Social history reviewed & non-contributory. Major Childhood Illnesses: reports: denies history Cardiovascular: reports: A-Fib Respiratory: reports: COPD Gastrointestinal: reports: denies history Genitourinary: reports: denies history Musculoskeletal: reports: denies history Neurological: reports: denies history Psychiatric: reports: denies history Endocrine/Immune: reports: denies history - PRIOR SURGERIES/PROCEDURES Surgical/Procedure History: reports: reviewed, not pertinent Physical Exam-General - PHYSICAL EXAM-ADULT Initial Vital Signs Reviewed: Yes - CONSTITUTIONAL General Appearance: alert, no apparent distress, other (nondiaphoretic) - EYES Eyes: other (opacified right cornea with blindness) - HEAD, EARS, NOSE, MOUTH & THROAT HENMT: moist mucous membranes - NECK Neck: supple - RESPIRATORY Respiratory: no respiratory distress, no accessory muscle use, decreased breath sounds, wheezing (scattered) - CARDIOVASCULAR Cardiovascular: tachycardia, irregularly irregular - GASTROINTESTINAL (ABDOMEN) Abdominal Exam: normal bowel sounds, non tender, soft - LYMPHATIC Lymphatic: no adenopathy - MUSCULOSKELETAL Back Exam: normal inspection, no CVA tenderness Extremity: normal range of motion, non-tender - SKIN Integumentary: normal color, normal turgor, warm/dry - NEUROLOGIC Neurologic: grossly normal - PSYCHIATRIC Psych/Mental Status: anxious Progress - PLAN OF CARE/RESULTS Progress/Plan/Lab Results: Vital Signs - 8 hr 12/10/19 11:34 12/10/19 12:28 12/10/19 12:32 Temperature 100.2 F H Pulse Rate 154 H 135 H 123 H Respiratory Rate 24 21 22 Blood Pressure 147/78 165/155 93/69 O2 Sat by Pulse Oximetry 89 L 97 96 12/10/19 12:34 12/10/19 12:38 12/10/19 13:14 Temperature Pulse Rate 109 H 114 H 91 H Respiratory Rate 23 21 23 Blood Pressure 123/86 120/69 125/83 O2 Sat by Pulse Oximetry 96 96 98 12/10/19 13:18 12/10/19 13:32 Temperature Pulse Rate 92 H 92 H Respiratory Rate 17 17 Blood Pressure 124/99 115/85 O2 Sat by Pulse Oximetry 99 99 12/10/19 12:28 Influenza Screen - Final Nasopharyngeal Laboratory Results - last 24 hr 12/10/19 12/10/19 12/10/19 12:00 12:00 12:00 WBC 12.65 H RBC 4.28 Hgb 11.7 L Hct 38.3 MCV 89.5 MCH 27.3 MCHC 30.5 L RDW Std Deviation 14.3 Plt Count 192 MPV 10.1 Immature Gran % (Auto) 0.2 Neut % (Auto) 95.6 H Lymph % (Auto) 1.8 L [place] % (Auto) 2.0 Eos % (Auto) 0.2 Baso % (Auto) 0.2 Immature Gran # (Auto) 0.03 Neut # (Auto) 12.09 H Lymph # (Auto) 0.23 L [place] # (Auto) 0.25 Eos # (Auto) 0.02 Baso # (Auto) 0.03 Segmented Neutrophils 90 H Band Neutrophils 4 H Lymphocytes 2 L Monocytes 4 Hypochromia 1+ Sodium Potassium Chloride Carbon Dioxide Anion Gap BUN Creatinine Estimated GFR/1.73 m2 BUN/Creatinine Ratio Glucose Calculated Osmolality Calcium Magnesium 1.9 Total Bilirubin AST ALT Alkaline Phosphatase Creatine Kinase Troponin T High Sens [id number]-R-Qswoihlhnyk Pept Total Protein Albumin Globulin Albumin/Globulin Ratio Plasma Lactate TSH 3.34 Urine Source Urine Color Urine Turbidity Urine pH Ur Specific [place] Urine Protein Ur Glucose (Stick) Ur Ketones (Stick) Urine Blood Urine Nitrite Urine Bilirubin Urobilinogen Dipstick Urine Leukocytes Urine WBC (Auto) Urine RBC (Auto) U Epithel Cells (Auto) Urine Bacteria (Auto) 12/10/19 12/10/19 12/10/19 12:10 12:10 12:10 WBC RBC Hgb Hct MCV MCH MCHC RDW Std Deviation Plt Count MPV Immature Gran % (Auto) Neut % (Auto) Lymph % (Auto) [place] % (Auto) Eos % (Auto) Baso % (Auto) Immature Gran # (Auto) Neut # (Auto) Lymph # (Auto) [place] # (Auto) Eos # (Auto) Baso # (Auto) Segmented Neutrophils Band Neutrophils Lymphocytes Monocytes Hypochromia Sodium 144 Potassium 3.6 Chloride 102 Carbon Dioxide 24 L Anion Gap 18 BUN 15 Creatinine 0.8 Estimated GFR/1.73 m2 > 60 BUN/Creatinine Ratio 19 Glucose 112 H Calculated Osmolality 288 Calcium 9.1 Magnesium Total Bilirubin 0.65 AST 22 ALT 12 Alkaline Phosphatase 79 Creatine Kinase Troponin T High Sens 17 Jlp-Y-Vouqmnnojsk Pept Total Protein 6.6 Albumin 4.3 Globulin 2.3 Albumin/Globulin Ratio 1.9 Plasma Lactate 1.7 TSH Urine Source Urine Color Urine Turbidity Urine pH Ur Specific [place] Urine Protein Ur Glucose (Stick) Ur Ketones (Stick) Urine Blood Urine Nitrite Urine Bilirubin Urobilinogen Dipstick Urine Leukocytes Urine WBC (Auto) Urine RBC (Auto) U Epithel Cells (Auto) Urine Bacteria (Auto) 12/10/19 12/10/19 12/10/19 12:10 12:10 12:42 WBC RBC Hgb Hct MCV MCH MCHC RDW Std Deviation Plt Count MPV Immature Gran % (Auto) Neut % (Auto) Lymph % (Auto) [place] % (Auto) Eos % (Auto) Baso % (Auto) Immature Gran # (Auto) Neut # (Auto) Lymph # (Auto) [place] # (Auto) Eos # (Auto) Baso # (Auto) Segmented Neutrophils Band Neutrophils Lymphocytes Monocytes Hypochromia Sodium Potassium Chloride Carbon Dioxide Anion Gap BUN Creatinine Estimated GFR/1.73 m2 BUN/Creatinine Ratio Glucose Calculated Osmolality Calcium Magnesium Total Bilirubin AST ALT Alkaline Phosphatase Creatine Kinase 74 Troponin T High Sens [id number]-Ojqwonorxyd Pept 1151 H Total Protein Albumin Globulin Albumin/Globulin Ratio Plasma Lactate TSH Urine Source CLEAN CATCH Urine Color YELLOW Urine Turbidity CLEAR Urine pH 7.5 Ur Specific [place] 1.012 Urine Protein NEGATIVE Ur Glucose (Stick) NEGATIVE Ur Ketones (Stick) TRACE A Urine Blood NEGATIVE Urine Nitrite NEGATIVE Urine Bilirubin NEGATIVE Urobilinogen Dipstick NORMAL Urine Leukocytes SMALL A Urine WBC (Auto) <10 Urine RBC (Auto) <10 U Epithel Cells (Auto) >10 A Urine Bacteria (Auto) 1+ Orders Category Date Time Status Cardiac Monitoring DIRECTED Care 12/10/19 11:49 Active Isolation Precautions Setup NOW Care 12/10/19 11:47 Active NEWS Score 2-4:Order NEWS Lactate Series NOW Care 12/10/19 11:51 Active Saline Loc NOW Care 12/10/19 11:49 Active CHEST-PORTABLE [RAD] Stat Exams 12/10/19 11:47 Completed BLOOD CULTURE [BLDCUL] Stat Lab 12/10/19 12:37 Uncollected BNP [PRO B-NATRIURETIC PEPTIDE] Stat Lab 12/10/19 12:10 Completed CBC WITH ELECTRONIC DIFF [HEME] Stat Lab 12/10/19 12:00 Completed CK PROFILE [SP CHEM] Stat Lab 12/10/19 12:10 Completed CMP [COMPREHENSIVE METABOLIC PANEL] [CHEM] Stat Lab 12/10/19 12:10 Completed INFLUENZA SCREEN A/B Stat Lab 12/10/19 12:28 Completed LACTATE, PLASMA [CHEM] Q3H Lab 12/10/19 12:10 Completed LACTATE, PLASMA [CHEM] Q3H Lab 12/10/19 15:00 Uncollected LACTATE, PLASMA [CHEM] Q3H Lab 12/10/19 18:00 Uncollected MAGNESIUM [CHEM] Stat Lab 12/10/19 12:00 Completed MISCELLANEOUS TEST-LAB [RF] Stat Lab 12/10/19 11:48 Uncollected TROPONIN T HIGH SENSITIVITY Stat Lab 12/10/19 12:10 Completed TSH Stat Lab 12/10/19 12:00 Completed URINALYSIS W/POSS RFLX CULT [URINALYSIS] Stat Lab 12/10/19 12:42 Completed URINE CULTURE [RM] Routine Lab 12/10/19 12:00 Received 0.9% Sodium Chloride Inj [Ns] 1,000 ml Med 12/10/19 12:41 Discontinued .ROUTE As directed 0.9% Sodium Chloride Inj [Ns] 500 ml Med 12/10/19 12:36 Discontinued IV 999 mls/hr Acetaminophen [Tylenol] Med 12/10/19 12:41 Discontinued 650 mg PO NOW ONE Albuterol Sulfate Inhaler [Ventolin Hfa] Med 12/10/19 13:31 Discontinued 2 puff INH NOW ONE CefTRIAXONE [Rocephin] 1 gm Med 12/10/19 13:29 Discontinued 0.9% Sodium Chloride Inj [Ns] 50 ml IV NOW Diltiazem [Cardizem] Med 12/10/19 12:14 Discontinued 15 mg IV NOW ONE MDI Treatments Stat Oth 12/10/19 13:32 Active Oxygen Device Stat Oth 12/10/19 11:51 Active EKG [EKG] Stat Ther 12/10/19 11:42 Draft EKG [EKG] Stat Ther 12/10/19 12:53 Draft Result Diagrams: 12/10/19 12:00 12/10/19 12:10 - REASSESSMENT Reassessment #1 Time Reassessed: 12:45 Status: improving Reassessment Comment: heart rate is now controlled - EKG 1 Time of EKG reading by physician:: 11:43 EKG Read and Signed by:: Charles Reynoso Rate: 137 Rhythm: atrial fibrillation ST Wave: non-specific ST changes Comments: no STEMI 2 Time of EKG reading by physician:: 12:57 EKG Read and Signed by:: Charles Reynoso Rate: 107 Rhythm: atrial fibrillation ST Wave: non-specific ST changes Comments: no STEMI - CONSULTS/PCP/HOSPITALIST Notification #1 *Consult/PCP/Hospitalist*: Dr. Crowe Time Discussed: 14:00 Consult Disposition: Admit Departure - Departure Date of Disposition Decision: 12/10/19 Time of Disposition Decision: 14:03 DIAGNOSIS: Atrial fibrillation with RVR, COPD exacerbation Disposition: ADMITTED INPATIENT 09 Certified Medical Emergency: Emergent Condition: Stable Referrals and Follow-Ups: Mariusz Gavin MD [Primary Care Provider] - - Critical Care Note This patient required my direct & personal management of CC.: Yes Total Time (mins): 110 Critical Care Statement: This patient required my direct personal management to treat or rule out processes, the absence of which, could potentiallly result in sudden, clinically significant life or limb threatening deterioration. Attestation - Physician/ DILMA Attestation Patient care was provided by Advanced Practice Provider:: No The physician spent face to face time with patient:: Yes Advanced Practice Provider documentation review:: Supervising physician onsite and consulted in the evaluation and care of this patient. The physician did have a face to face encounter with the patient.
--- NOTE | 2019-12-10 12:18 | Diag Imaging Result Doc PS360 ---
EXAM: CHEST-PORTABLE - 12/10/2019 HISTORY: sob,fever,cough TECHNIQUE: Portable chest COMPARISON: 10/28/2019 FINDINGS: Heart size appears upper normal and mildly decreased compared to prior. There is tortuosity of the thoracic aorta. There are stable right basilar calcified granuloma from old granulomatous disease. There are some COPD changes similar to prior. The lungs appear to be clear of acute changes. There is no pleural effusion or pneumothorax identified. IMPRESSION: COPD changes. No evidence of acute disease. Electronically signed by Facundo Samano 12/10/2019 12:15 PM
[2019-12-10 12:30] LABS: BASO# 0.03 X1000 (0.0-0.2); BASO% 0.2 % (0.0-0.8); EOS# 0.02 X1000 (0.0-0.7); EOS% 0.2 % (0.0-10.0); HEMATOCRIT 38.3 % (37.0-47.0); HEMOGLOBIN 11.7 g/dL (12.0-16.0); IMM GRAN# 0.03 X1000 (0.0-0.04); IMM GRAN% 0.2 % (0.0-0.5); LYMPH# 0.23 X1000 (1.2-3.4); LYMPH% 1.8 % (20.5-51.1); MCH 27.3 PG (27-31); MCHC 30.5 g/dL (33-37); MCV 89.5 FL (81-99); MONO# 0.25 X1000 (0.11-0.59); MPV 10.1 FL (7.4-10.4); NEUT# 12.09 X1000 (1.4-6.5); NEUT% 95.6 % (42.2-75.2); PLT 192 X1000 (130-400); RBC 4.28 XMIL (4.2-5.4); RDW 14.3 % (11.5-14.5); WBC 12.65 X1000 (4.8-10.8)
[2019-12-10] MEDS ORDERED: NS 500 ML IV ONE (12:36)
[2019-12-10] MEDS ORDERED: NS 1,000 ML ONE (12:41)
[2019-12-10] MEDS ORDERED: TYLENOL PO ONE (12:41)
[2019-12-10 12:50] LABS: URINE SOURCE CLEAN CATCH
[2019-12-10 12:54] LABS: BILIRUBIN URINE NEGATIVE (NEGATIVE); BLOOD URINE NEGATIVE (NEGATIVE); COLOR YELLOW; GLUCOSE URINE NEGATIVE (NEGATIVE); KETONE URINE TRACE mg/dL (NEGATIVE); LEUKOCYTES URINE SMALL (NEGATIVE); NITRITE URINE NEGATIVE (NEGATIVE); PH URINE 7.5; PROTEIN URINE NEGATIVE (NEGATIVE); SP GRAVITY URINE 1.012; TURBIDITY URINE CLEAR (CLEAR); UR EPITHELIAL CELLS >10 /HPF (<10); URINE BACTERIA 1+ /HPF; URINE RBC <10 /HPF (<10); URINE WBC <10 /HPF (<10); UROBILINOGEN URINE NORMAL (NORMAL)
[2019-12-10] MEDS ORDERED: ROCEPHIN 1 GM in NS 50 ML IV ONE (13:29)
[2019-12-10] MEDS ORDERED: VENTOLIN HFA INH ONE (13:31)
[2019-12-10 13:39] LABS: BANDS 4 % (0-1); HYPOCHROM 1+; LYMPHS 2 % (21-51); MONO 4 % (1-9); SEGS 90 % (42-75)
[2019-12-10 13:44] LABS: AGAP 18; ALB/GLOB RATIO 1.9; ALBUMIN 4.3 g/dL (3.5-5.0); ALKALINE PHOSPHATASE 79 U/L (32-104); BUN 15 mg/dL (8-22); CALCIUM 9.1 mg/dL (8.8-10.2); CHLORIDE 102 mmol/L (98-107); COSMO 288; CREATININE 0.8 mg/dL (0.5-0.9); ESTIMATED GFR > 60; GLUCOSE 112 mg/dL (70-104); GOT 22 U/L (10-30); GPT 12 U/L (10-36); POTASSIUM 3.6 mmol/L (3.5-5.1); SODIUM 144 mmol/L (136-145); TCO2 24 mmol/L (25-35); TOTAL BILIRUBIN 0.65 mg/dL (0.20-1.00); TOTAL PROTEIN 6.6 g/dL (6.3-8.3)
--- NOTE | 2019-12-10 13:55 | EKG Report ---
Test Performed on : 12/10/2019 12:56:49 PM Test Reason : pain Blood Pressure : / mmHG Vent. Rate : 107 BPM Atrial Rate : 286 BPM P-R Int : 000 ms QRS Dur : 086 ms QT Int : 324 ms P-R-T Axes : 000 025 111 degrees QTc Int : 432 ms Atrial flutter. with variable AV block. ST & T wave abnormality, consider inferolateral ischemia Abnormal ECG When compared with ECG of 10-DEC-2019 11:42, (Unconfirmed) ST no longer depressed in Anterior leads Unconfirmed Result
--- NOTE | 2019-12-10 13:57 | EKG Report ---
Test Performed on : 12/10/2019 11:42:20 AM Test Reason : IRREGULAR RHYTHM Blood Pressure : / mmHG Vent. Rate : 137 BPM Atrial Rate : 274 BPM P-R Int : 000 ms QRS Dur : 082 ms QT Int : 280 ms P-R-T Axes : 000 036 146 degrees QTc Int : 422 ms Atrial flutter. with variable AV block. with premature ventricular or aberrantly conducted complexes. Marked ST abnormality, possible lateral subendocardial injury Abnormal ECG When compared with ECG of 28-OCT-2019 12:53, Atrial flutter. has replaced Sinus rhythm. Vent. rate has increased BY [address] now depressed in Anterolateral leads T wave inversion now evident in Inferior leads T wave inversion now evident in Lateral leads Unconfirmed Result
[2019-12-10] MEDS ORDERED: TYLENOL PO PRN (14:25)
--- NOTE | 2019-12-10 16:58 | HISTORY AND PHYSICAL ---
CHIEF COMPLAINT: Weakness. Nausea, vomiting, and shortness of breath. HISTORY OF PRESENT ILLNESS: Ms Haynes is an 84-year-old white female patient with multiple medical problems, not doing well for the last two to three days. The patient was feeling weak with increasing cough, chest congestion, and expectoration. The patient also had nausea, vomiting and diarrhea. When daughter went to check on her today, patient was very lethargic, not responding appropriately. The patient was weak. Daughter called me. We decided to send her to the ER. When patient came to the ER the patient was found to be weak and had clinical dehydration. The patient was in atrial fibrillation with rapid ventricular response. The patient is a vague and poor historian. I got the information from the daughter. According to daughter, the patient was staying out some with working in the yard, exposing herself to lot of pollens. She had increasing cough, chest congestion, shortness of breath and getting short of breath easily. Cough with yellowish expectoration. No hemoptysis. Denied any dysuria or hematuria. Patient did have diarrhea but no blood or mucus in the stool. The patient vomited multiple times. No known exposure to patient with coronavirus infection. Unquantified weight loss. During her last admission we did CT scan of the chest which did reveal possible endobronchial lesion. I referred her to superintendent drilling and production and patient has not seen him yet. Vague abdominal pain. No abdominal distention. The patient did have vague chest pain, at times, palpitations. No further history available at this time. ALLERGIES: Zocor. PAST MEDICAL HISTORY: 1. Chronic obstructive pulmonary disease. 2. Chronic respiratory failure. 3. Paroxysmal atrial fibrillation. 4. Osteoarthritis. 5. Hypothyroidism. 6. Situational depression and anxiety. 7. Hyperlipidemia. 8. Gastritis and reflux disease. 9. Diverticular disease of the colon. 10. History suggestive of TIA. 11. Rhinitis. 12. Dementia. SOCIAL HISTORY: , lives by herself. The patient does smoke. Denied alcohol or substance abuse. FAMILY HISTORY: Noncontributory. REVIEW OF SYSTEMS: As per HPI. The patient does feel depressed at times. Unquantified weight loss. No heat or cold intolerance. PAST SURGICAL HISTORY: Significant for hysterectomy. PHYSICAL EXAMINATION: GENERAL: Elderly white female patient in moderate distress. VITAL SIGNS: Blood pressure 120/69, pulse 114, respirations 21, temperature 98.8 degrees. SKIN: Senile turgor. HEENT: Head atraumatic, normocephalic. [place]man conjunctivae. Anicteric sclerae. Extraocular muscle movement normal. Fundus cannot be penetrated. Dry oral mucosa. Ears and nose benign. NECK: Supple. No JVD, thyromegaly or lymphadenopathy. CHEST: Bibasilar crepitation. Occasional wheezing. CARDIOVASCULAR: S1 and S2. Tachycardia. 2/6 systolic murmur at the apex. ABDOMEN: Soft. Bowel sounds present. No organomegaly or mass. Mild epigastric and left lower quadrant tenderness. EXTREMITIES: No cyanosis or clubbing. No acute DVT. INBOUND SALES CONSULTANT: Alert, awake, able to move all four limbs. ADMISSION LABORATORY DATA: Revealed, white blood cell count 12.65, hemoglobin 11.7, hematocrit 38.3, platelet count 192,000. Electrolytes were fairly benign. ProBNP 11,051. Plasma lactate 1.3. Urinalysis with leukocytes small and 1+ bacteria. IMAGING: Chest x-ray with COPD changes. No evidence of acute disease. CONSIDERATION: 1. Patient had cough, chest congestion, fever, and increasing shortness of breath. 2. Chronic obstructive pulmonary disease exacerbation. I treated her as an outpatient. The patient still has problem. We will admit her for inpatient care. 3. Gastroenteritis and diarrhea. 4. Intrabronchial lesion. 5. Hypothyroidism. 6. Gastritis and reflux disease. 7. Mild dementia. 8. History suggestive of transient ischemic attack. 9. Mild leukocytosis. PLAN: Admit the patient. IV hydration. Pulmonary toilet. IV antibiotics, IV steroids. Continue home medicine. The patient does have atrial fibrillation with rapid ventricular response. We did Cardiology consult. Overall plan discussed with the patient's daughter on telephone. They are in agreement. Appreciate Cardiology help. cc: Mariusz Gavin MD
[2019-12-10] MEDS: SOLU-MEDROL IV SCH (18:17)
--- NOTE | 2019-12-10 19:35 | CONSULTATION ---
DATE OF CONSULTATION: 12/10/2019 IMPRESSION: 1. Episode of atrial fibrillation with rapid ventricular rate of 130 beats per minute or so with associated palpitations. Patient has spontaneously converted back to sinus rhythm. 2. Acute gastrointestinal illness with vomiting and diarrhea probably leading to intravascular volume depletion. Potentially provoking atrial fibrillation episode. 3. Chronic obstructive pulmonary disease. Patient continues with cough productive of yellow sputum which is chronic. 4. Reported history of paroxysmal atrial fibrillation. Review of available [facility] records shows no atrial fibrillation over the past year. 5. Atherosclerotic coronary disease with previous coronary angioplasty/stent several years ago. Records not available. This was reportedly performed with Dr. Gillette in [place]. 6. Some degree of dementia reported. 7. Transient ischemic attack in the past. 8. Hyperlipidemia. 9. Hypothyroidism. RECOMMENDATIONS: 1. Continue to monitor on telemetry. 2. Continue efforts to rehydrate patient. 3. Continue oral diltiazem for rate control judiciously. 4. For now will continue aspirin/Plavix which she has been on in the past. Documentation of previous atrial fibrillation is not available and certainly given her CHADSVASC score, anticoagulation might be considered. 5. Smoking cessation strongly advised. HISTORY: This 84-year-old white female with past history of COPD, coronary atherosclerosis, previous atrial fibrillation at some point in the past, hyperlipidemia, previous transient ischemic attack, and some degree of dementia was admitted to the emergency room after she presented with recent vomiting and diarrhea and found to be in atrial fibrillation with rapid ventricular rate. She is a somewhat vague historian. She relates recent symptoms of diarrhea and vomiting. There has been no melena or bright red blood per rectum. Family noted her to seem weak and it was recommended by Dr. Gavin to bring her to the emergency room for evaluation. She had some palpitations today. She is found to be in atrial fibrillation with rapid ventricular rate. She has been given intravenous fluids and a single dose of intravenous diltiazem 15 mg. Heart rate slowed and she has ultimately converted back to sinus rhythm. She has not had any chest pain. She does have chronic cough productive of yellow sputum. She was recently hospitalized here 1 month ago for some atypical chest symptoms. During her hospital stay she had a myocardial perfusion study which reported no significant inducible ischemia. Echocardiography indicated normal left ventricular ejection fraction. Unfortunately, she continues to smoke a pack of cigarettes per day. She has been on aspirin and Plavix with history of previous transient ischemic attack. PAST MEDICAL HISTORY: 1. Chronic obstructive pulmonary disease. 2. Previous atrial fibrillation in the past but none documented over the past year in [facility] records. 3. Atherosclerotic coronary disease were reported history of previous coronary angioplasty/stent several years ago by Dr. Gillette in [place]. 4. Hyperlipidemia. 5. Hypothyroidism. 6. Previous transient ischemic attack. 7. Reported early dementia. PAST SURGICAL HISTORY: 1. Includes hysterectomy and thyroidectomy. She has had several lower back surgeries. 2. She is allergic or intolerant to simvastatin. MEDICATIONS PRIOR TO ADMISSION: As listed. SOCIAL HISTORY: She is been a for approximately 2 years. She has 1 daughter. She retired from [email or web address] where she worked in [employer] She has been a longstanding smoker and currently smokes 1 pack of cigarettes per day. FAMILY HISTORY: Negative for premature coronary disease. REVIEW OF SYSTEMS: Pulmonary: Noteworthy for cough productive of yellow sputum. There has been no significant dyspnea. Gastrointestinal: Noteworthy for vomiting and diarrhea. There has been no melena or bright red blood per rectum. Constitutional: Negative for fever. Remainder of review of systems negative/noncontributory beyond history present illness with 14 total systems reviewed. PHYSICAL EXAMINATION: General: This is an elderly white female in no distress who is hard of hearing. Vital signs: Blood pressure 134/60, heart rate 82 and regular with ECG monitor showing sinus rhythm. Oxygen saturation 98%. HEENT: Extraocular movements appear intact. Cornea right eye is sclerotic. Mucous membranes are moist. Neck: Supple without discernible jugular venous distention. There are no carotid bruits. Chest: Reveals few rhonchi in the left base but otherwise clear. Cardiac Exam: Reveals a regular rate and rhythm without appreciable murmur or gallop. Abdomen: Soft. Bowel sounds are normal. Extremities: Without edema. Neurologic: Reveals her to be alert and responsive. Speech is fluent. She moves all 4 extremities equally well. PERTINENT DATA: Twelve lead EKG obtained on presentation demonstrates atrial fibrillation with ventricular rate response of 107 beats per minute and nonspecific ST and T wave abnormality. Twelve lead EKG obtained on presentation at 11:42 a.m. today demonstrates atrial fibrillation with ventricular rate response 137 beats per minute and nonspecific ST and T wave abnormality. environmental monitoring technician shows that she ultimately converted back to sinus rhythm. LABORATORY DATA: Includes white blood cell count 12.65 hematocrit 38.3 hemoglobin 11.8, platelet count 192,000. Sodium 144 potassium 3.6, chloride 1 2 carbon dioxide 24, BUN 15 creatinine 0.8, glucose 112. TSH 3.34. cc: MD Mariusz Sky MD
[2019-12-10] MEDS ORDERED: VENTOLIN HFA INH SCH (21:00)
[2019-12-10] MEDS: SYMBICORT 80/4.5 MICROGM INHALER INH SCH (21:00)
[2019-12-10] MEDS: VENTOLIN HFA INH SCH (21:00)
[2019-12-10] MEDS: POTASSIUM CHLORIDE 10 MEQ in NS 1,000 ML IV SCH (21:47)
[2019-12-10] MEDS: PROTONIX IV SCH (21:47)
[2019-12-10] MEDS: LOVENOX SUBQ SCH (21:48)
[2019-12-10] MEDS: PRAVACHOL PO SCH (21:48)
[2019-12-11] MEDS: SOLU-MEDROL IV SCH ×3 (00:44→16:32)
[2019-12-11] MEDS: DUONEB (A & A) INH SCH ×2 (01:21→05:05)
[2019-12-11] MEDS: VENTOLIN HFA INH SCH ×5 (01:22→19:47)
[2019-12-11] MEDS: CATAPRES PO PRN (04:16)
--- NOTE | 2019-12-11 07:32 | PROGRESS NOTE ---
DATE: 12/11/2019 SUBJECTIVE: Ms. Haynes is feeling some better. Chest congestion and cough is less. Denied any vomiting since admission. No high-grade fever or chills. The patient was given clonidine for elevated blood pressure. No abdominal pain. Oral intake is fair. OBJECTIVE: Vital signs as noted.Neck: Supple. No JVD. Lungs: Bibasilar crepitations. Occasional wheezing. CVS: S1 and S2 heard. Abdomen: Soft. No distention. Bowel sounds present. 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 ASSESSMENT AND PLAN: The patient is admitted with acute bronchitis causing COPD exacerbation. Her other problems includes gastroenteritis. The patient did have atrial fibrillation with rapid ventricular response. Gastritis and reflux disease. Clinical dehydration. Hypothyroidism. Tobacco abuse. PLAN: Plan is to continue current treatment. Close observation. Overall plan discussed with the patient and her daughter, and they are in agreement. cc: Mariusz Gavin MD
[2019-12-11] MEDS ORDERED: ALTACE PO SCH (09:00)
[2019-12-11] MEDS: KLOR-CON PO SCH (09:03)
[2019-12-11] MEDS: ARICEPT PO SCH (09:03)
[2019-12-11] MEDS: SINGULAIR PO SCH (09:03)
[2019-12-11] MEDS: ALTACE PO SCH ×2 (09:03→20:46)
[2019-12-11] MEDS: SYNTHROID PO SCH (09:03)
[2019-12-11] MEDS: PLAVIX PO SCH (09:03)
[2019-12-11] MEDS: CARDIZEM CD PO SCH (09:03)
[2019-12-11] MEDS: LEXAPRO PO SCH (09:04)
[2019-12-11] MEDS: NICODERM PATCH TD SCH (09:25)
[2019-12-11] MEDS: POTASSIUM CHLORIDE 10 MEQ in NS 1,000 ML IV SCH ×2 (09:25→20:49)
[2019-12-11] MEDS: SYMBICORT 80/4.5 MICROGM INHALER INH SCH ×2 (09:56→19:47)
--- NOTE | 2019-12-11 13:46 | PROGRESS NOTE ---
DATE: 12/11/2019 SUBJECTIVE: Ms. Haynes denies any chest discomfort, shortness of breath. Cough seems to have improved since admission. She continues in sinus rhythm. OBJECTIVE: Vital Signs: Blood pressure 142/64, heart rate 62 with ECG monitor showing sinus rhythm, oxygen saturation 98% on nasal cannula oxygen at 2 L/minute. Neck: There is no significant jugular venous distention. Chest: Clear to auscultation bilaterally. Cardiac: Regular rate and rhythm, without appreciable murmur or gallop. Extremities: There is no evidence of peripheral edema. IMPRESSION: 1. Recent episode of atrial fibrillation with rapid ventricular rate in the setting of probable intravascular volume depletion and chronic obstructive pulmonary disease. The patient has spontaneously converted back to sinus rhythm. 2. Acute gastrointestinal illness with vomiting and diarrhea, probably leading to intravascular volume depletion. Patient improving. 3. Chronic obstructive pulmonary disease with some chronic cough productive of yellow sputum. 4. Previous atrial fibrillation in the past. Recent review available of [facility] records shows no atrial fibrillation over the past year. 5. Atherosclerotic coronary disease with reported previous coronary angioplasty/stent several years ago in [place], [place]. The patient continues without angina. 6. Some degree of dementia. 7. Transient ischemic attack. 8. Hyperlipidemia. 9. Hypothyroidism. RECOMMENDATIONS: 1. Continue to monitor on telemetry. 2. Continue oral diltiazem at current dose for rate control. 3. For now, continue aspirin and Plavix, which she has been on for some time now. Should she have further atrial fibrillation, consideration should be given to switching her to anticoagulation with Eliquis. 4. Smoking cessation advised. cc: MD Mariusz Sky MD
[2019-12-11] MEDS: ROCEPHIN 1 GM in NS 50 ML IV SCH (16:32)
[2019-12-11] MEDS: PROTONIX IV SCH (20:45)
[2019-12-11] MEDS: LOVENOX SUBQ SCH (20:45)
[2019-12-11] MEDS: PRAVACHOL PO SCH (20:45)
[2019-12-12] MEDS: SOLU-MEDROL IV SCH ×3 (00:16→17:11)
[2019-12-12] MEDS: DUONEB (A & A) INH SCH ×5 (03:10→22:04)
[2019-12-12] MEDS: VENTOLIN HFA INH SCH ×4 (03:56→22:02)
[2019-12-12 06:14] LABS: HEMATOCRIT 34.3 % (37.0-47.0); HEMOGLOBIN 10.3 g/dL (12.0-16.0); IMM GRAN# 0.03 X1000 (0.0-0.04); IMM GRAN% 0.2 % (0.0-0.5); LYMPH# 0.41 X1000 (1.2-3.4); LYMPH% 3.1 % (20.5-51.1); MCH 27.2 PG (27-31); MCV 90.7 FL (81-99); MONO# 0.28 X1000 (0.11-0.59); MONO% 2.1 % (1.7-9.3); NEUT# 12.31 X1000 (1.4-6.5); NEUT% 94.6 % (42.2-75.2); PLT 179 X1000 (130-400); RBC 3.78 XMIL (4.2-5.4); RDW 14.6 % (11.5-14.5); WBC 13.03 X1000 (4.8-10.8)
[2019-12-12 06:58] LABS: AGAP 12; ALB/GLOB RATIO 1.2; ALBUMIN 3.4 g/dL (3.5-5.0); ALKALINE PHOSPHATASE 74 U/L (32-104); BUN 20 mg/dL (8-22); CHLORIDE 108 mmol/L (98-107); COSMO 291; CREATININE 0.6 mg/dL (0.5-0.9); ESTIMATED GFR > 60; GLUCOSE 155 mg/dL (70-104); GOT 42 U/L (10-30); GPT 33 U/L (10-36); MAGNESIUM 2.3 mg/dL (1.5-2.7); POTASSIUM 4.5 mmol/L (3.5-5.1); SODIUM 143 mmol/L (136-145); TCO2 23 mmol/L (25-35); TOTAL BILIRUBIN 0.22 mg/dL (0.20-1.00); TOTAL PROTEIN 6.3 g/dL (6.3-8.3)
[2019-12-12 07:07] LABS: SEGS 100 % (42-75)
--- NOTE | 2019-12-12 07:34 | PROGRESS NOTE ---
DATE: 12/12/2019 SUBJECTIVE: Ms. Haynes is feeling better. Oral intake is fair. She denied any nausea or vomiting. No diarrhea. Mild pain in the left lower quadrant. No chest pain or palpitations heard. OBJECTIVE: Vital signs: Noted. Patient is afebrile. Neck: Supple. No JVD. Lungs: Bibasilar crepitations. Heart: S1 and S2 heard. Abdomen: Soft. No distention. Bowel sounds present. Mild tenderness left lower quadrant. No guarding or rigidity. 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 LABORATORY DATA: Done today and reviewed. WBC count 13.03, hemoglobin 10.3, hematocrit 34.3. Electrolytes were fairly benign. Her BUN was 20, creatinine 0.6. Stool for Clostridium difficile toxin result is pending. ASSESSMENT AND PLAN: 1. Patient admitted with atrial fibrillation with rapid ventricular response. 2. Acute bronchitis and chronic obstructive pulmonary disease exacerbation. 3. Gastroenteritis. 4. Hypertension. Overall patient is doing better. Her COVID-19 test is pending. We will continue current treatment. Close observation. Physical therapy evaluation. Once COVID-19 test is negative, overall plan discussed with the patient. cc: Mariusz Gavin MD
[2019-12-12] MEDS: ARICEPT PO SCH (08:30)
[2019-12-12] MEDS: CARDIZEM CD PO SCH (08:30)
[2019-12-12] MEDS: SINGULAIR PO SCH (08:30)
[2019-12-12] MEDS: PLAVIX PO SCH (08:30)
[2019-12-12] MEDS: SYNTHROID PO SCH (08:31)
[2019-12-12] MEDS: ALTACE PO SCH ×2 (08:31→20:48)
[2019-12-12] MEDS: KLOR-CON PO SCH (08:31)
[2019-12-12] MEDS: LEXAPRO PO SCH (08:31)
[2019-12-12] MEDS: NICODERM PATCH TD SCH (08:31)
[2019-12-12] MEDS: CATAPRES PO PRN (08:48)
[2019-12-12] MEDS: SYMBICORT 80/4.5 MICROGM INHALER INH SCH ×2 (09:12→19:35)
[2019-12-12] MEDS: ROCEPHIN 1 GM in NS 50 ML IV SCH (16:11)
[2019-12-12] MEDS: POTASSIUM CHLORIDE 10 MEQ in NS 1,000 ML IV SCH (16:11)
[2019-12-12] MEDS: PROTONIX IV SCH (20:48)
[2019-12-12] MEDS: LOVENOX SUBQ SCH (20:48)
[2019-12-12] MEDS: PRAVACHOL PO SCH (20:48)
[2019-12-13] MEDS: SOLU-MEDROL IV SCH (02:38)
[2019-12-13] MEDS: DUONEB (A & A) INH SCH ×4 (03:56→21:00)
[2019-12-13] MEDS: VENTOLIN HFA INH SCH ×4 (03:57→21:00)
[2019-12-13 06:28] LABS: HEMATOCRIT 34.7 % (37.0-47.0); HEMOGLOBIN 10.5 g/dL (12.0-16.0); LYMPH# 0.39 X1000 (1.2-3.4); LYMPH% 4.2 % (20.5-51.1); MCH 27.4 PG (27-31); MCHC 30.3 g/dL (33-37); MCV 90.6 FL (81-99); MONO# 0.34 X1000 (0.11-0.59); MONO% 3.7 % (1.7-9.3); MPV 11.2 FL (7.4-10.4); NEUT# 8.55 X1000 (1.4-6.5); NEUT% 92.1 % (42.2-75.2); PLT 172 X1000 (130-400); RBC 3.83 XMIL (4.2-5.4); RDW 14.3 % (11.5-14.5); WBC 9.28 X1000 (4.8-10.8)
[2019-12-13 06:33] LABS: AGAP 10; ALB/GLOB RATIO 1.2; ALBUMIN 3.3 g/dL (3.5-5.0); ALKALINE PHOSPHATASE 65 U/L (32-104); BUN 18 mg/dL (8-22); CALCIUM 8.8 mg/dL (8.8-10.2); CHLORIDE 104 mmol/L (98-107); COSMO 284; CREATININE 0.6 mg/dL (0.5-0.9); ESTIMATED GFR > 60; GLUCOSE 141 mg/dL (70-104); GOT 18 U/L (10-30); GPT 25 U/L (10-36); POTASSIUM 4.5 mmol/L (3.5-5.1); SODIUM 140 mmol/L (136-145); TCO2 26 mmol/L (25-35); TOTAL BILIRUBIN 0.25 mg/dL (0.20-1.00); TOTAL PROTEIN 6.1 g/dL (6.3-8.3)
[2019-12-13] MEDS ORDERED: LASIX IV ONE (07:28)
[2019-12-13] MEDS: ALTACE PO SCH ×2 (07:59→20:38)
[2019-12-13] MEDS: SINGULAIR PO SCH (07:59)
[2019-12-13] MEDS: ARICEPT PO SCH (08:00)
[2019-12-13] MEDS: LEXAPRO PO SCH (08:00)
[2019-12-13] MEDS: PLAVIX PO SCH (08:00)
[2019-12-13] MEDS: NICODERM PATCH TD SCH (08:00)
[2019-12-13] MEDS: CARDIZEM CD PO SCH (08:00)
[2019-12-13] MEDS: KLOR-CON PO SCH (08:00)
[2019-12-13] MEDS: CATAPRES PO PRN ×2 (08:00→12:48)
[2019-12-13] MEDS: PREDNISONE PO SCH (08:00)
[2019-12-13] MEDS: SYNTHROID PO SCH (08:00)
[2019-12-13] MEDS: SYMBICORT 80/4.5 MICROGM INHALER INH SCH ×2 (11:00→21:00)
[2019-12-13] MEDS: POTASSIUM CHLORIDE 10 MEQ in NS 1,000 ML IV SCH (12:48)
[2019-12-13] MEDS ORDERED: ALTACE PO ONE (15:09)
[2019-12-13] MEDS ORDERED: XANAX PO PRN (15:11)
[2019-12-13] MEDS: ROCEPHIN 1 GM in NS 50 ML IV SCH (15:39)
--- NOTE | 2019-12-13 16:24 | PROGRESS NOTE ---
DATE: 12/13/2019 SUBJECTIVELY: Ms. Haynes is doing better. She denied any fever or chills. The patient did not have bowel movement yet. No nausea or vomiting. Oral intake improving. No headache. Plan was to discharge patient home today but her blood pressure is staying high. I increase her Altace to 10 mg twice a day. Kept Cardizem at same dose because of vivienne arrhythmia. I gave her some Lasix today. OBJECTIVE: Vital Signs: Noted. Neck: Supple. No JVD. Lungs: Bibasilar crepitations. Heart: S1 and S2 heard. Abdomen: Soft, nontender. Bowel sounds present. Extremities: No cyanosis, clubbing. No acute DVT. FLOOR MANAGER: Alert, awake able to move all 4 limbs. CONSIDERATION: 1. Uncontrolled hypertension. 2. Acute bronchitis. 3. Gastroenteritis. 4. Paroxysmal atrial fibrillation. PLAN: We will check appropriate labs tomorrow. If clinical condition permits, we will plan discharging patient home tomorrow. Overall plan discussed with the patient's daughter and patient and they are in agreement. cc: Mariusz Gavin MD
[2019-12-13] MEDS: PRAVACHOL PO SCH (20:38)
[2019-12-13] MEDS: LOVENOX SUBQ SCH (20:39)
[2019-12-13] MEDS: PROTONIX IV SCH (20:39)
[2019-12-13] MEDS ORDERED: ALTACE PO SCH (21:00)
[2019-12-14] MEDS: VENTOLIN HFA INH SCH ×4 (03:34→22:51)
[2019-12-14] MEDS: DUONEB (A & A) INH SCH ×4 (03:34→22:31)
[2019-12-14 05:39] LABS: HEMOGLOBIN 10.6 g/dL (12.0-16.0); IMM GRAN# 0.02 X1000 (0.0-0.04); IMM GRAN% 0.3 % (0.0-0.5); LYMPH# 1.31 X1000 (1.2-3.4); LYMPH% 17.5 % (20.5-51.1); MCH 27.1 PG (27-31); MCHC 30.3 g/dL (33-37); MCV 89.5 FL (81-99); MONO# 0.88 X1000 (0.11-0.59); MONO% 11.7 % (1.7-9.3); MPV 10.8 FL (7.4-10.4); NEUT# 5.29 X1000 (1.4-6.5); NEUT% 70.5 % (42.2-75.2); PLT 177 X1000 (130-400); RBC 3.91 XMIL (4.2-5.4)
[2019-12-14 06:17] LABS: AGAP 9; ALB/GLOB RATIO 1.7; ALBUMIN 3.3 g/dL (3.5-5.0); ALKALINE PHOSPHATASE 53 U/L (32-104); BUN 26 mg/dL (8-22); CALCIUM 8.4 mg/dL (8.8-10.2); CHLORIDE 99 mmol/L (98-107); COSMO 280; CREATININE 0.5 mg/dL (0.5-0.9); ESTIMATED GFR > 60; GLUCOSE 97 mg/dL (70-104); GOT 12 U/L (10-30); GPT 21 U/L (10-36); POTASSIUM 3.8 mmol/L (3.5-5.1); SODIUM 138 mmol/L (136-145); TCO2 30 mmol/L (25-35); TOTAL BILIRUBIN 0.28 mg/dL (0.20-1.00); TOTAL PROTEIN 5.2 g/dL (6.3-8.3)
[2019-12-14] MEDS: KLOR-CON PO SCH (08:16)
[2019-12-14] MEDS: CARDIZEM CD PO SCH (08:16)
[2019-12-14] MEDS: ARICEPT PO SCH (08:16)
[2019-12-14] MEDS: ALTACE PO SCH ×2 (08:16→21:18)
[2019-12-14] MEDS: LEXAPRO PO SCH (08:16)
[2019-12-14] MEDS: NICODERM PATCH TD SCH (08:17)
[2019-12-14] MEDS: SYNTHROID PO SCH (08:17)
[2019-12-14] MEDS: SINGULAIR PO SCH (08:17)
[2019-12-14] MEDS: PREDNISONE PO SCH (08:17)
[2019-12-14] MEDS: PLAVIX PO SCH (08:17)
[2019-12-14] MEDS: SYMBICORT 80/4.5 MICROGM INHALER INH SCH ×2 (08:39→20:26)
--- NOTE | 2019-12-14 13:21 | PROGRESS NOTE ---
DATE: 12/14/2019 Her blood pressure was elevated this morning. It went up to 170. She is feeling somewhat better. Her CBCs are stable. Electrolytes are normal. BUN is 26, creatinine 0.5. Blood pressure was 155/50. She is negative for a coronavirus test. We will continue to watch her closely. -8 cc: MD Mariusz Guzman MD
[2019-12-14] MEDS: ROCEPHIN 1 GM in NS 50 ML IV SCH (18:53)
[2019-12-14] MEDS: PROTONIX IV SCH (21:17)
[2019-12-14] MEDS: PRAVACHOL PO SCH (21:18)
[2019-12-14] MEDS: LOVENOX SUBQ SCH (21:18)
[2019-12-14] MEDS: SODIUM CHLORIDE 0.9% INJ SCH (21:18)
[2019-12-15] MEDS: DUONEB (A & A) INH SCH ×4 (04:42→22:06)
[2019-12-15] MEDS: VENTOLIN HFA INH SCH ×2 (05:06→11:07)
[2019-12-15 06:56] LABS: AGAP 9; BUN 21 mg/dL (8-22); CALCIUM 8.6 mg/dL (8.8-10.2); CHLORIDE 99 mmol/L (98-107); COSMO 278; CREATININE 0.7 mg/dL (0.5-0.9); ESTIMATED GFR > 60; GLUCOSE 87 mg/dL (70-104); POTASSIUM 3.7 mmol/L (3.5-5.1); SODIUM 138 mmol/L (136-145); TCO2 30 mmol/L (25-35)
[2019-12-15] MEDS ORDERED: CALCIUM GLUCONATE 1 GM in NS 50 ML IV ONE (10:22)
[2019-12-15] MEDS: ALTACE PO SCH ×2 (10:30→21:08)
[2019-12-15] MEDS: ARICEPT PO SCH (10:30)
[2019-12-15] MEDS: NICODERM PATCH TD SCH (10:31)
[2019-12-15] MEDS: LEXAPRO PO SCH (10:31)
[2019-12-15] MEDS: PLAVIX PO SCH (10:31)
[2019-12-15] MEDS: PREDNISONE PO SCH (10:31)
[2019-12-15] MEDS: CARDIZEM CD PO SCH (10:31)
[2019-12-15] MEDS: KLOR-CON PO SCH (10:31)
[2019-12-15] MEDS: SYNTHROID PO SCH (10:32)
[2019-12-15] MEDS: SINGULAIR PO SCH (10:32)
[2019-12-15] MEDS: CATAPRES PO PRN (10:44)
[2019-12-15] MEDS: SYMBICORT 80/4.5 MICROGM INHALER INH SCH ×2 (11:08→19:34)
--- NOTE | 2019-12-15 11:50 | PROGRESS NOTE ---
DATE: 12/15/2019 Ms. Haynes is doing somewhat better. Her O2 saturation was 97, heart rate was 58, blood pressure 172/58. Calcium was down to 8.6. We gave her IV calcium gluconate today. Her blood pressure is still up. I personally feel like the ramipril is still taking some time to work on it. Her Covid-19 test was negative. She is doing somewhat better. Complains about insomnia. What I am going to do is continue her albuterol MDI today. cc: MD Mariusz Guzman MD MTDD
[2019-12-15] MEDS: ROCEPHIN 1 GM in NS 50 ML IV SCH (18:49)
[2019-12-15] MEDS ORDERED: DULCOLAX PR ONE (19:42)
[2019-12-15] MEDS ORDERED: AMBIEN PO SCH (21:00)
[2019-12-15] MEDS: PROTONIX IV SCH (21:07)
[2019-12-15] MEDS: SODIUM CHLORIDE 0.9% INJ SCH (21:07)
[2019-12-15] MEDS: LOVENOX SUBQ SCH (21:08)
[2019-12-15] MEDS: PRAVACHOL PO SCH (21:08)
[2019-12-16] MEDS: DUONEB (A & A) INH SCH (03:32)
[2019-12-16 07:12] LABS: AGAP 9; BUN 18 mg/dL (8-22); CALCIUM 8.5 mg/dL (8.8-10.2); CHLORIDE 102 mmol/L (98-107); COSMO 283; CREATININE 0.6 mg/dL (0.5-0.9); ESTIMATED GFR > 60; GLUCOSE 91 mg/dL (70-104); POTASSIUM 3.3 mmol/L (3.5-5.1); SODIUM 141 mmol/L (136-145); TCO2 30 mmol/L (25-35)
--- NOTE | 2019-12-16 07:15 | DISCHARGE SUMMARY ---
ADMISSION DATE: 12/10/2019 DISCHARGE DATE: 12/16/2019 FINAL DISCHARGE DIAGNOSES: 1. Paroxysmal atrial tachycardia. 2. Chronic obstructive pulmonary disease exacerbation. 3. Gastroenteritis. 4. Anxiety. 5. Uncontrolled hypertension. 6. Gastritis and reflux disease. 7. Hyperlipidemia. 8. Hypothyroidism. 9. Osteoarthritis. 10. History suggestive of transient ischemic attack. 11. Hyperlipidemia. HISTORY OF PRESENT ILLNESS: Ms Haynes, an 84-year-old female patient, known case of coronary atherosclerosis, COPD, hypothyroidism, paroxysmal atrial fibrillation admitted with chest congestion, cough expectoration, nausea, vomiting and diarrhea. Oral intake was poor. The patient was very weak. Evaluated in the ER. The patient was sick for quite some time. Not responding to outpatient treatment. The patient was admitted for further care. HOSPITAL COURSE: Patient was treated with IV hydration, IV steroid antibiotics and symptomatic treatment. Cardiology consult obtained. The patient converted to sinus rhythm with 1 dose of IV Cardizem. Hospital course was prolonged, partially due to her weakness and uncontrolled hypertension. Overall, her clinical condition improved. Nausea, vomiting and diarrhea improved. Chest congestion and cough got better. She denied any fever or chills. No vomiting. Her blood pressure improved. Overall, patient received maximum benefit of hospitalization. I did discuss her condition and plan with her daughter, offered them home health, but they declined. I am planning to discharge patient home today with follow up with me in 1 week. Overall, discharge condition satisfactory. Discharge plan discussed at length and they are in agreement. DISCHARGE PHYSICAL EXAMINATION: Vital Signs: Her vital signs noted. Blood pressure much improved. Neck: Supple. No JVD. Lungs: Bibasilar crepitations. Heart: S1 and S2 heard. Abdomen: Soft. No distention. Bowel sounds present. 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 Answering questions fairly well. LABORATORY DATA: Ordered for today, result is pending. Discussed with patient and daughter. Fall precaution. Monitor blood pressure at home. I am going to evaluate her for home oxygen need. Discharge medicines explained at length. Monitor blood pressure at home. Follow up with me in a week's time. In case of more distress, call us back or go to emergency room. I increased her Altace 10 mg twice a day. Continue Cardizem and other medicine as prescribed before. Give her prednisone in tapering dose. cc: Mariusz Gavin MD
[2019-12-16 07:26] VITALS: BP 160/57
[2019-12-16] MEDS: ALTACE PO SCH (07:58)
[2019-12-16] MEDS: CARDIZEM CD PO SCH (07:59)
[2019-12-16] MEDS: SYNTHROID PO SCH (07:59)
[2019-12-16] MEDS: NICODERM PATCH TD SCH (07:59)
[2019-12-16] MEDS: LEXAPRO PO SCH (07:59)
[2019-12-16] MEDS: PLAVIX PO SCH (07:59)
[2019-12-16] MEDS: SINGULAIR PO SCH (07:59)
[2019-12-16] MEDS: ARICEPT PO SCH (07:59)
[2019-12-16] MEDS ORDERED: KLOR-CON PO ONE (08:00)
[2019-12-16] MEDS ORDERED: PREDNISONE PO SCH (09:00)
== END 2019-12-16 12:05 | disposition home or self-care (01) | DRG 309 ==
LOC: ED 11:22 → 4N 15:32 → 2N 16:18 → 4N 12-14 17:49
PROVIDERS: ADMIT Internal Medicine; ATTEND Internal Medicine